=== PATIENT | female | born 1950 | race Caucasian/White ===

== ENCOUNTER 2017-07-24 09:00 | Day surgery (SDC) | payer MEDICARE ==
[~2017-07-24 09:00] MED LIST: Bisacodyl 5 MG Tab PO PRN; Bupivacaine 0.75%/D5W 2 ML Amp ONE; Dexamethasone 4 MG/ML SDV ONE; EPINEPHrine 1 MG/ML SDV ONE; Lactated Ringers 1,000 ML IV SCH; Lactated Ringers 1,000 ML ONE; Lidocaine 1% 2 ML ONE; Lidocaine 1%/Sod Bicarbonate in NS 8.4% 1 ML Syringe IDERM PRN; Magnesium Hydroxide 400 MG/5 ML Susp 30 ML Cup PO PRN; Midazolam 1 MG/ML 2 ML SDV ONE; Morphine 2 MG/ML Syringe IVPUSH PRN; Morphine 8 MG, EPINEPHrine 0.3 MG, Cefuroxime 750 MG, Ketorolac 30 MG, Sodium Chloride ... ONE; Morphine PF 10 MG/10 ML SDV ONE; Naloxone 0.4 MG/ML SDV IVPUSH PRN; Ondansetron 4 MG/2 ML SDV IVPUSH PRN; Ondansetron 4 MG/2 ML SDV ONE; Propofol 200 MG/20 ML SDV ONE; Ropivacaine 0.5% 5 MG/ML 30 ML SDV ONE; Sennosides 8.6 MG Tab PO PRN; Sodium Chloride 0.9% 10 ML Syringe FLUSH PRN; ceFAZolin 1 GM Vial ONE; fentaNYL 100 MCG/2 ML SDV ONE
[2017-07-24] MEDS ORDERED: Iodine/Sodium Iodide 2% Tincture 30 ML Bottle ONE (09:09)
[2017-07-24] MEDS ORDERED: ceFAZolin 1 GM Vial ONE (09:09)
[2017-07-24] MEDS ORDERED: Bupivacaine 0.25% 30 ML SDV ONE (09:09)
[2017-07-24] MEDS ORDERED: Vancomycin 1 GM SDV ONE (09:09)
--- NOTE | 2017-07-24 09:21 | PCM.PREANE ---
Preanesthetic Assessment - Procedure Proposed Procedure: left total knee arthroplasty - Anesthesia/Transfusion/Family Hx Anesthesia History: Prior Anesthesia Without Reaction Family History of Anesthesia Reaction: No Transfusion History: No Prior Transfusion(s) - Review of Systems General: No Symptoms Pulmonary: No Symptoms Cardiovascular: No Symptoms Gastrointestinal: No Symptoms Neurological: Seizure (last one a couple weeks ago- med change- had a few in fe - her left side goes numb- no unusual movements.-) Other: Reports: Easy Bruising - Physical Assessment NPO Status Date: 07/23/17 NPO Status Time: 21:00 (sip this am with pills) Pulse: 77 O2 Sat by Pulse Oximetry: 94 Respiratory Rate: 16 Blood Pressure: 148/92 Temperature: 98.2 F Height: 5 ft 3 in Weight: 67 kg ASA Class: 3 Mental Status: Alert & Oriented x3 Airway Class: Mallampati = 1 Dentition: Reports: Dentures (top and bottom) Thyro-Mental Finger Breadths: 3 Mouth Opening Finger Breadths: 3 ROM/Head Extension: Full Lungs: Clear to Auscultation, Normal Respiratory Effort Cardiovascular: Regular Rate, Regular Rhythm - Lab Values: Laboratory Last Values MRSA (PCR) Negative 07/01/17 13:55 - Imaging/EKG Impressions: stress test 06/[address] Jean - Allergies Allergies/Adverse Reactions: Allergies Allergy/AdvReac Type Severity Reaction Status Date / Time No Known Allergies Allergy Verified 07/23/17 09:43 - Blood Blood Available: No - Acknowledgements Anesthesia Type Planned: Spinal Pt an Appropriate Candidate for the Planned Anesthesia: Yes Alternatives and Risks of Anesthesia Discussed w Pt/Guardian: Yes Pt/Guardian Understands and Agrees with Anesthesia Plan: Yes PreAnesthesia Questionnaire HEENT History: Reports: Glaucoma Cardiovascular History: Reports: High Cholesterol, Hypertension Other Cardiovascular History: Syncopal episodes Respiratory History: Reports: Asthma (denies) Gastrointestinal History: Reports: Other (See Below) Other Gastrointestinal History: Rectocele Genitourinary History: Reports: Other (See Below) Other Genitourinary History: Cystocele 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: Musculoskeletal History: Reports: Osteoarthritis Neurological History: Reports: Seizure Psychiatric History: Reports: Bipolar Endocrine/Metabolic History: Reports: Osteoporosis Hematologic History: Reports: None Immunologic History: Reports: None Oncologic (Cancer) History: Reports: None Dermatologic History: Reports: None - Past Surgical History Head Surgeries/Procedures: Reports: None HEENT Surgical History: Reports: None Cardiovascular Surgical History: Reports: None Respiratory Surgical History: Reports: None GI Surgical History: Reports: Cholecystectomy Female Surgical History: Reports: Hysterectomy Endocrine Surgical History: Reports: None Neurological Surgical History: Reports: None Musculoskeletal Surgical History: Reports: None Oncologic Surgical History: Reports: None - SUBSTANCE USE Smoking Status *Q: Former Smoker (quit 4 years ago) Tobacco Use Within Last Twelve Months: No Second Hand Smoke Exposure: No Days Per Week of Alcohol Use: 0 Recreational Drug Use History: No - HOME MEDS Home Medications: Home Meds Cholecalciferol (Vitamin D3) [Vitamin D3] 2,000 unit PO DAILY 07/23/17 [History] lamoTRIgine [Lamictal] 100 mg PO BID 07/23/17 [History] - CURRENT (IN HOUSE) MEDS Current Meds: Current Medications Bisacodyl (Dulcolax) 5 mg PO DAILY PRN PRN Reason: Constipation Docusate Sodium (Colace) 100 mg PO BID VANITA Famotidine (Pepcid) 20 mg PO Q12H [facility] Lactated Ringer's (Ringers, Lactated) 1,000 mls @ 125 mls/hr IV ASDIRECTED [facility] Stop: 07/24/17 23:00 Cefazolin Sodium/Dextrose 2 gm (/ Premix) 50 mls @ 100 mls/hr IV Q8H [facility] [place] Stop: 07/24/17 23:29 Ketorolac Tromethamine (Toradol) 15 mg IVPUSH Q6H PRN PRN Reason: Pain Lidocaine/Sodium Bicarbonate (Buffered Lidocaine 1% In Ns 8.4%) 0.25 ml IDERM ONETIME PRN PRN Reason: Prior to IV Start Stop: 07/24/17 18:00 Magnesium Hydroxide (Milk Of Magnesia) 30 ml PO BID PRN PRN Reason: Constipation Morphine Sulfate (Morphine) 2 mg IVPUSH Q2H PRN PRN Reason: Breakthrough Pain Naloxone HCl (Narcan) 0.1 mg IVPUSH Q5M PRN PRN Reason: Oversedation Ondansetron HCl (Zofran) 4 mg IVPUSH Q6H PRN PRN Reason: Nausea/Vomiting Oxycodone/Acetaminophen (Percocet 325-5 Mg) 1 - 2 tab PO Q4H PRN PRN Reason: Pain Rivaroxaban (Xarelto) 10 mg PO DAILY VANITA Senna (Senna) 8.6 mg PO BID PRN PRN Reason: Constipation Sodium Chloride (Saline Flush) 10 ml FLUSH ASDIRECTED PRN PRN Reason: Keep Vein Open Stop: 07/24/17 18:00 Discontinued Medications Bupivacaine HCl (Marcaine 0.25%) Confirm Administered Dose 30 ml .ROUTE .STK- MED ONE Stop: 07/24/17 09:10 Bupivacaine HCl/Dextrose (Marcaine 0.75% Spinal) Confirm Administered Dose 2 ml .ROUTE .STK-MED ONE Stop: 07/24/17 08:23 Cefazolin Sodium (Ancef) Confirm Administered Dose 2 gm .ROUTE .STK-MED ONE Stop: 07/24/17 08:23 Cefazolin Sodium (Ancef) Confirm Administered Dose 2 gm .ROUTE .STK-MED ONE Stop: 07/24/17 09:10 Morphine Sulfate 8 mg/Epinephrine HCl 0.3 mg/Cefuroxime Sodium 750 mg/Ketorolac Tromethamine 30 mg/Sodium Chloride 27.9 ml 0 mg .XX ONETIME ONE Stop: 07/24/17 07:31 Dexamethasone (Dexamethasone) Confirm Administered Dose 4 mg .ROUTE .STK-MED ONE Stop: 07/24/17 08:23 Epinephrine HCl (Adrenalin) Confirm Administered Dose 1 mg .ROUTE .STK-MED ONE Stop: 07/24/17 07:33 Fentanyl (Sublimaze) Confirm Administered Dose 100 mcg .ROUTE .STK-MED ONE Stop: 07/24/17 08:23 Lidocaine HCl (Xylocaine-Mpf 1%) Confirm Administered Dose 10 mls @ as directed .ROUTE .STK-MED ONE Stop: 07/24/17 08:23 Lactated Ringer's (Ringers, Lactated) Confirm Administered Dose 1,000 mls @ as directed .ROUTE .STK-MED ONE Stop: 07/24/17 08:23 Lidocaine HCl (Xylocaine-Mpf 1%) Confirm Administered Dose 2 mls @ as directed .ROUTE .STK-MED ONE Stop: 07/24/17 08:28 Lidocaine HCl (Xylocaine-Mpf 1%) Confirm Administered Dose 2 mls @ as directed .ROUTE .STK-MED ONE Stop: 07/24/17 08:28 Iodine (Iodine 2% Mild Tincture) Confirm Administered Dose 30 ml .ROUTE .STK- MED ONE Stop: 07/24/17 09:10 Midazolam HCl (Versed 1 Mg/Ml) Confirm Administered Dose 2 mg .ROUTE .STK-MED ONE Stop: 06/09/17 07:53 Midazolam HCl (Versed 1 Mg/Ml) Confirm Administered Dose 2 mg .ROUTE .STK-MED ONE Stop: 07/24/17 08:24 Morphine Sulfate (Duramorph Pf) Confirm Administered Dose 10 mg .ROUTE .STK-MED ONE Stop: 07/24/17 08:24 Ondansetron HCl (Zofran) Confirm Administered Dose 4 mg .ROUTE .STK-MED ONE Stop: 07/24/17 08:23 Propofol (Diprivan 20 Ml) Confirm Administered Dose 400 mg .ROUTE .STK-MED ONE Stop: 07/24/17 08:23 Ropivacaine (Naropin 0.5%) Confirm Administered Dose 30 ml .ROUTE .STK-MED ONE Stop: 07/24/17 07:33 Tranexamic Acid (Cyklokapron) Confirm Administered Dose 1,000 mg .ROUTE .STK- MED ONE Stop: 07/24/17 09:10 Vancomycin HCl (Vancomycin) Confirm Administered Dose 1 gm .ROUTE .STK-MED ONE Stop: 07/24/17 09:10
[2017-07-24] MEDS ORDERED: Albuterol 0.083% 2.5 MG/3 ML Neb Soln NEB ONE (10:30)
[2017-07-24] MEDS ORDERED: Ondansetron 4 MG/2 ML SDV IVPUSH PRN (11:49)
[2017-07-24] MEDS ORDERED: fentaNYL 100 MCG/2 ML SDV IVPUSH PRN (11:49)
[2017-07-24] MEDS ORDERED: Midazolam 1 MG/ML 2 ML SDV IVPUSH PRN (11:49)
[2017-07-24] MEDS ORDERED: ePHEDrine 50 MG/ML SDV IVPUSH PRN (11:49)
[2017-07-24] MEDS ORDERED: diphenhydrAMINE 50 MG/ML SDV IVPUSH PRN (11:49)
[2017-07-24] MEDS ORDERED: HYDROmorphone 0.5 MG/0.5 ML Syringe IVPUSH PRN (11:51)
[2017-07-24] MEDS ORDERED: Lactated Ringers 1,000 ML ONE (11:58)
[2017-07-24] MEDS ORDERED: Phenylephrine 1 MG in Sodium Chloride 0.9% 10 ML IV SCH (12:00)
--- NOTE | 2017-07-24 12:08 | PCM.CONS ---
H&P History of Present Illness - General Date of Service: 07/24/17 Admit Problem/Dx: Admission Diagnosis/Problem Admission Diagnosis/Problem Osteoarthritis of knee Source of Information: Patient, Old Records, Provider History Limitations: Reports: No Limitations - History of Present Illness Initial Comments - Free Text/Narative: Martha is a 67 yo female patient of Dr. Shelton who is post-operative day 0 of left TKA. Hospital medicine was consulted for post-operative medical care. At this time she is stable. Pain is controlled. She denies any chest pain, shortness of breath, palpitations, nausea, or vomiting. She carries a history of : rectocele, cystocele, OA, syncope, bipolar, HLD, asthma, glaucoma, HTN, osteoporosis, seizure disorder (1x/month). She is a former smoker- quit 4 years ago. She is a full code. Her primary care provider is Micaela Myles. Left Knee Pain Score (Numeric/FACES): 5 - Related Data Allergies/Adverse Reactions: Allergies Allergy/AdvReac Type Severity Reaction Status Date / Time No Known Allergies Allergy Verified 07/23/17 09:43 Home Medications: Home Meds Cholecalciferol (Vitamin D3) [Vitamin D3] 2,000 unit PO DAILY 07/23/17 [History] lamoTRIgine [Lamictal] 100 mg PO BID 07/23/17 [History] Past Medical History HEENT History: Reports: Glaucoma Cardiovascular History: Reports: High Cholesterol, Hypertension Other Cardiovascular History: Syncopal episodes Respiratory History: Reports: Asthma (denies) Gastrointestinal History: Reports: Other (See Below) Other Gastrointestinal History: Rectocele Genitourinary History: Reports: Other (See Below) Other Genitourinary History: Cystocele [employer]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: Musculoskeletal History: Reports: Osteoarthritis Neurological History: Reports: Seizure Psychiatric History: Reports: Bipolar Endocrine/Metabolic History: Reports: Osteoporosis Hematologic History: Reports: None Immunologic History: Reports: None Oncologic (Cancer) History: Reports: None Dermatologic History: Reports: None - Past Surgical History Head Surgeries/Procedures: Reports: None HEENT Surgical History: Reports: None Cardiovascular Surgical History: Reports: None Respiratory Surgical History: Reports: None GI Surgical History: Reports: Cholecystectomy Female Surgical History: Reports: Hysterectomy Endocrine Surgical History: Reports: None Neurological Surgical History: Reports: None Musculoskeletal Surgical History: Reports: None Oncologic Surgical History: Reports: None Social & Family History - Tobacco Use Smoking Status *Q: Former Smoker (quit 4 years ago) Used Tobacco, but Quit: Yes Month/Year Tobacco Last Used: 2011 Second Hand Smoke Exposure: No - Caffeine Use Caffeine Use: Reports: Coffee - Alcohol Use Days Per Week of Alcohol Use: 0 - Recreational Drug Use Recreational Drug Use: No Drug Use in Last 12 Months: No H&P Review of Systems - Review of Systems: Review Of Systems: See Below General: Reports: Chills. Denies: Fever HEENT: Reports: No Symptoms Pulmonary: Reports: No Symptoms. Denies: Shortness of Breath, Pleuritic Chest Pain, Cough Cardiovascular: Reports: No Symptoms. Denies: Chest Pain, Palpitations, Dyspnea on Exertion, Edema Gastrointestinal: Reports: No Symptoms. Denies: Abdominal Pain, Diarrhea, Nausea, Vomiting Genitourinary: Reports: No Symptoms. Denies: Dysuria, Frequency, Burning, Pain , Urgency Musculoskeletal: Reports: Leg Pain (s/p LTKA) Skin: Reports: No Symptoms Psychiatric: Reports: No Symptoms Neurological: Reports: Numbness (s/p L TKA, medication still wearing off). Denies: Confusion, Dizziness, Seizure, Tingling Hematologic/Lymphatic: Reports: No Symptoms Immunologic: Reports: No Symptoms Exam - Exam Exam: See Below - Vital Signs Vital Signs: Last Vital Signs Temp 98.2 F 07/24/17 09:34 Pulse 77 07/24/17 09:34 Resp 16 07/24/17 09:34 BP 148/92 H 07/24/17 09:34 Pulse Ox 95 07/24/17 10:38 Weight: 147 lb - Exam Quality Assessment: Supplemental Oxygen (2L nasal cannula), Urinary Catheter, DVT Prophylaxis General: Alert, Oriented, Cooperative HEENT: Conjunctiva Clear, EACs Clear, EOMI, Hearing Intact, Mucosa Moist & Meyer , Nares Patent, Normal Nasal Septum, Posterior Pharynx Clear, Pupils Equal, Pupils Reactive, TMs Clear, PERRLA Neck: Supple, Trachea Midline, 2 Lungs: Clear to Auscultation, Normal Respiratory Effort Cardiovascular: Regular Rate, Regular Rhythm GI/Abdominal Exam: Normal Bowel Sounds, Soft, Non-Tender, No Organomegaly, No Distention, No Abnormal Bruit, No Mass, Pelvis Stable (Female) Exam: Deferred Rectal (Female) Exam: Deferred Back Exam: Normal Inspection, Full Range of Motion, NT Extremities: Normal Inspection, Non-Tender, No Pedal Edema, Normal Capillary Refill, Limited Range of Motion (s/p LTKA). No: Leg Pain Peripheral Pulses: 1+: Posterior Tibial (L), Posterior Tibial (R), Dorsalis Pedis (L), Dorsalis Pedis (R) Skin: Warm, Dry, Intact, Other (bandage dry and intact, no drainage) Neurological: Cranial Nerves Intact (grossly) Neuro Extensive - Mental Status: Alert, Oriented x3, Normal Mood/Affect, Normal Cognition Psychiatric: Alert, Normal Affect, Normal Mood Consult PN Assessment/Plan POD#: 0 (1) Status post total left knee replacement SNOMED Code(s): 6697719323405 Code(s): Z96.652 - PRESENCE OF LEFT ARTIFICIAL KNEE JOINT Priority: High Current Visit: Yes (2) Osteoarthritis SNOMED Code(s): 467366985 Code(s): M19.90 - UNSPECIFIED OSTEOARTHRITIS, UNSPECIFIED SITE Priority: High Current Visit: Yes Qualifiers: Osteoarthritis location: knee Osteoarthritis type: unspecified Laterality : left Qualified Code(s): M17.12 - Unilateral primary osteoarthritis, left knee (3) HTN (hypertension) SNOMED Code(s): 39374919 Code(s): I10 - ESSENTIAL (PRIMARY) HYPERTENSION Priority: Medium Current Visit: Yes Qualifiers: Hypertension type: unspecified Qualified Code(s): I10 - Essential (primary ) hypertension (4) HLD (hyperlipidemia) SNOMED Code(s): 48331084 Code(s): E78.5 - HYPERLIPIDEMIA, UNSPECIFIED Priority: Medium Current Visit: Yes Qualifiers: Hyperlipidemia type: unspecified Qualified Code(s): E78.5 - Hyperlipidemia , unspecified (5) Bipolar disorder SNOMED Code(s): 10168890 Code(s): F31.9 - BIPOLAR DISORDER, UNSPECIFIED Priority: Low Current Visit: Yes Qualifiers: Active/Remission status: remission status unspecified Qualified Code(s): F31.9 - Bipolar disorder, unspecified (6) Asthma SNOMED Code(s): 265100507 Code(s): J45.909 - UNSPECIFIED ASTHMA, UNCOMPLICATED Priority: Low Current Visit: No Qualifiers: Asthma severity: unspecified severity Asthma persistence: unspecified Asthma complication type: unspecified Qualified Code(s): J45.909 - Unspecified asthma, uncomplicated (7) Osteoporosis SNOMED Code(s): 02532638 Code(s): M81.0 - AGE-RELATED OSTEOPOROSIS W/O CURRENT PATHOLOGICAL FRACTURE Priority: High Current Visit: Yes Qualifiers: Osteoporosis type: unspecified Presence of current pathological fracture: unspecified Qualified Code(s): M81.0 - Age-related osteoporosis without current pathological fracture (8) Seizure disorder SNOMED Code(s): 652128330 Code(s): G40.909 - EPILEPSY, UNSP, NOT INTRACTABLE, WITHOUT STATUS EPILEPTICUS Priority: High Current Visit: No Problem List Initiated/Reviewed/Updated: Yes Plan: I/P: Acute: S/P left total knee arthroplasty - post-operative day 0 -DVT prophylaxis and pain management per primary care team -PT/OT -IS/RT -Monitor oxygen saturation -Titrate oxygen as needed -Vital signs stable -Monitor labs -Pre-operative Hgb was 14, eGFR was 81 Osteoarthritis of knee -Pain management per primary care team Chronic: Rectocele Cystocele Syncope Bipolar HLD Asthma Glaucoma HTN Osteoporosis Seizure Disorder (1x/mo) Plan: CM for discharge planning GI prophylaxis: Pepcid DVT/PE prophylaxis: CARMELITA casey, SCD, Xaralto Home medications as indicated Other orders as listed above Routine AM labs She is a full code. Her PCP is Micaela Myles. Thank you for allowing us to participate in the care of this patient!!
--- NOTE | 2017-07-24 13:24 | PCM.POSTAN ---
POST ANESTHESIA ASSESSMENT - MENTAL STATUS Mental Status: Alert - VITAL SIGNS Pulse Rate: 82 SaO2: 92 Resp Rate: 19 Blood Pressure: 154/79 Temperature: 36.5 C - RESPIRATORY Respiratory Status: Respiratory Rate WNL, Airway Patent, O2 Saturation Stable, Supplemental Oxygen - CARDIOVASCULAR CV Status: Pulse Rate WNL, Blood Pressure Stable - GASTROINTESTINAL GI Status: No Symptoms - POST OP HYDRATION Hydration Status: Adequate & Stable
--- NOTE | 2017-07-24 13:53 | PCM.SN ---
- Free Text/Narrative Note: Left selective femoral nerve block at the adductor canal for post-procedure pain control under US guidance requested by Dr. Shelton. Time Out: 1329 Start: 1329 End: 1342 Chart reviewed. Consent signed. Questions answered. Appropriate monitors applied. Time out performed. Left mid-shaft femur identified with ultrasound, scanning medially of femur, the femoral artery in the adductor canal visualized , and the femoral nerve located laterally to the artery. The skin was prepped lateral to the ultrasound probe with chlorahexadine times two. The 21ga 4 insulated block needle was inserted under direct ultrasound guidance into the adductor canal. 20mL of 0.5% ropivacaine with 1:200,000 epinephrine was injected circumferentially around the nerve with intermittent negative aspiration noted. Patient tolerated the procedure well. Sterile technique noted along with sterile gloves, mask, and sterile probe cover. See picture on progress note and vital signs on nurses notes. Block completed in PACU. Ginger Nelson CRNA
--- NOTE | 2017-07-24 15:10 | CR ---
Left knee: Two views of the left knee were obtained utilizing portable technique. Comparison: No prior knee exam. Knee prosthesis is seen. Components are aligned. Underlying bony structures are intact. Soft tissue air is noted from the surgical procedure. Vascular calcification is seen. Well-corticated calcification is noted off the medial epicondyle of the distal femur which appears to be incidental. Impression: 1. Satisfactory postoperative radiographic appearance of recently placed left knee prosthesis. 2. Other incidental findings. Diagnostic code #2
[2017-07-24] MEDS ORDERED: LORazepam 2 MG/ML SDV IVPUSH PRN (15:49)
[2017-07-24] MEDS: ceFAZolin 2 GM in Premix Bag 1 BAG IV SCH (16:48)
[2017-07-24] MEDS: lamoTRIgine 100 MG Tab PO SCH (19:03)
[2017-07-24] MEDS ORDERED: diphenhydrAMINE 50 MG/ML SDV IVPUSH ONE (20:21)
[2017-07-24] MEDS ORDERED: Cholecalciferol (Vitamin D3) 1,000 Unit Tab PO SCH (21:00)
[2017-07-24] MEDS: Famotidine 20 MG Tab PO SCH (21:00)
[2017-07-24] MEDS: Docusate Sodium 100 MG Cap PO SCH (21:00)
[2017-07-25] MEDS: ceFAZolin 2 GM in Premix Bag 1 BAG IV SCH ×2 (02:31→08:37)
[2017-07-25] MEDS: lamoTRIgine 100 MG Tab PO SCH ×2 (02:32→08:37)
--- NOTE | 2017-07-25 06:33 | PCM.SN ---
- Free Text/Narrative Note: Patient seen and examined at bedside. She slept good last night, pain is controlled and reports no acute issues. Her vitals are stable. From the hospitalist standpoint, patient is stable and relatively fine. We are now signing off on her case. Please feel free to call us for any questions or concerns.
--- NOTE | 2017-07-25 08:29 | PCM48HPAN ---
Post Anesthesia Note - EVALUATION WITHIN 48HRS OF ANESTHETIC Vital Signs in Normal Range: Yes Patient Participated in Evaluation: Yes Respiratory Function Stable: Yes Airway Patent: Yes Cardiovascular Function Stable: Yes Hydration Status Stable: Yes Pain Control Satisfactory: Yes Nausea and Vomiting Control Satisfactory: Yes Mental Status Recovered: Yes
[2017-07-25] MEDS: Famotidine 20 MG Tab PO SCH (08:37)
[2017-07-25] MEDS: Acetaminophen/oxyCODONE 325-5 MG Tab PO PRN ×2 (08:38→12:53)
[2017-07-25] MEDS: Docusate Sodium 100 MG Cap PO SCH (08:38)
--- NOTE | 2017-07-25 08:51 | PCM.SURGPN ---
- General Info Date of Service: 07/25/17 POD#: 1 Functional Status: Reports: Pain Controlled, Tolerating Diet, Ambulating, Urinating, Incentive Spirometry, Other (The pt states today that she is doing very well.) - Patient Data Vitals - Most Recent: Last Vital Signs Temp 98.1 F 07/25/17 00:43 Pulse 77 07/25/17 06:00 Resp 20 07/25/17 06:00 BP 121/89 07/25/17 00:43 Pulse Ox 94 L 07/25/17 06:51 Weight - Most Recent: 147 lb I&O - Last 24 Hours: Intake & Output 07/24/17 07/25/17 07/25/17 22:59 06:59 14:59 Intake Total 840 200 Output Total 350 400 Balance 490 -200 Lab Results Last 24 Hrs: Laboratory Results - last 24 hr 07/25/17 07/25/17 Range/Units 05:48 05:48 WBC 9.78 (3.98-10.04) K/mm3 RBC 3.76 L (3.98-5.22) M/mm3 Hgb 11.5 (11.2-15.7) gm/L Hct 36.4 (34.1-44.9) % MCV 96.8 H (79.4-94.8) fl MCH 30.6 (25.6-32.2) pg MCHC 31.6 L (32.2-35.5) g/dl RDW Std Deviation 46.2 (36.4-46.3) fL Plt Count 349 (182-369) K/mm3 MPV 10.5 (9.4-12.3) fl Sodium 143 (136-145) mEq/L Potassium 4.9 (3.5-5.1) mEq/L Chloride 108 H (98-107) mEq/L Carbon Dioxide 28 (21-32) mEq/L Anion Gap 11.9 (5-15) BUN 16 (7-18) mg/dL Creatinine 0.9 (0.55-1.02) mg/dL Est Cr Clr Drug Dosing 56.78 mL/min Estimated GFR (MDRD) > 60 (>60) mL/min BUN/Creatinine Ratio 17.8 (14-18) Glucose 91 (80-115) mg/dL Calcium 8.7 (8.5-10.1) mg/dL Total Bilirubin 0.4 (0.2-1.0) mg/dL AST 21 (15-37) U/L ALT 21 (14-59) U/L Alkaline Phosphatase 79 (46-116) U/L Total Protein 6.5 (6.4-8.2) g/dl Albumin 2.8 L (3.4-5.0) g/dl Globulin 3.7 gm/dL Albumin/Globulin Ratio 0.8 L (1-2) Med Orders - Current: Current Medications Bisacodyl (Dulcolax) 5 mg PO DAILY PRN PRN Reason: Constipation Cholecalciferol (Vitamin D3) 2,000 units PO BEDTIME [facility] Last Admin: 07/24/17 21:00 Dose: 2,000 units Docusate Sodium (Colace) 100 mg PO BID [facility] Last Admin: 07/25/17 08:38 Dose: 100 mg Famotidine (Pepcid) 20 mg PO Q12H [facility] Last Admin: 07/25/17 08:37 Dose: 20 mg Cefazolin Sodium/Dextrose 2 gm (/ Premix) 50 mls @ 100 mls/hr IV Q8H [facility] Stop: 07/25/17 09:29 Last Admin: 07/25/17 08:37 Dose: 100 mls/hr Ketorolac Tromethamine (Toradol) 15 mg IVPUSH Q6H PRN PRN Reason: Pain Lamotrigine (Lamotrigine) 100 mg PO BID [facility] Last Admin: 07/25/17 08:37 Dose: 100 mg Lorazepam (Ativan) 2 mg IVPUSH Q4H PRN PRN Reason: Seizures Magnesium Hydroxide (Milk Of Magnesia) 30 ml PO BID PRN PRN Reason: Constipation Morphine Sulfate (Morphine) 2 mg IVPUSH Q2H PRN PRN Reason: Breakthrough Pain Naloxone HCl (Narcan) 0.1 mg IVPUSH Q5M PRN PRN Reason: Oversedation Ondansetron HCl (Zofran) 4 mg IVPUSH Q6H PRN PRN Reason: Nausea/Vomiting Oxycodone/Acetaminophen (Percocet 325-5 Mg) 1 - 2 tab PO Q4H PRN PRN Reason: Pain Last Admin: 07/25/17 08:38 Dose: 2 tab Rivaroxaban (Xarelto) 10 mg PO DAILY [facility] Last Admin: 07/25/17 08:38 Dose: 10 mg Senna (Senna) 8.6 mg PO BID PRN PRN Reason: Constipation Discontinued Medications Albuterol (Proventil Neb Soln) 2.5 mg NEB ONETIME ONE Stop: 07/24/17 10:31 Last Admin: 07/24/17 10:38 Dose: 2.5 mg Bupivacaine HCl (Marcaine 0.25%) Confirm Administered Dose 30 ml .ROUTE .STK- MED ONE Stop: 07/24/17 09:10 Last Admin: 07/24/17 12:42 Dose: 30 ml Bupivacaine HCl/Dextrose (Marcaine 0.75% Spinal) Confirm Administered Dose 2 ml .ROUTE .STK-MED ONE Stop: 07/24/17 08:23 Cefazolin Sodium (Ancef) Confirm Administered Dose 2 gm .ROUTE .STK-MED ONE Stop: 07/24/17 08:23 Last Admin: 07/24/17 12:37 Dose: 2 gm Cefazolin Sodium (Ancef) Confirm Administered Dose 2 gm .ROUTE .STK-MED ONE Stop: 07/24/17 09:10 Morphine Sulfate 8 mg/Epinephrine HCl 0.3 mg/Cefuroxime Sodium 750 mg/Ketorolac Tromethamine 30 mg/Sodium Chloride 27.9 ml 0 mg .XX ONETIME ONE Stop: 07/24/17 07:31 Last Admin: 07/24/17 12:42 Dose: 788.3 mg Dexamethasone (Dexamethasone) Confirm Administered Dose 4 mg .ROUTE .STK-MED ONE Stop: 07/24/17 08:23 Diphenhydramine HCl (Benadryl) 25 mg IVPUSH Q6H PRN PRN Reason: pruritis Stop: 07/24/17 16:00 Diphenhydramine HCl (Benadryl) 25 mg IVPUSH ONETIME ONE Stop: 07/24/17 20:22 Last Admin: 07/24/17 20:30 Dose: 25 mg Ephedrine Sulfate (Ephedrine Sulfate) 5 mg IVPUSH ASDIRECTED PRN PRN Reason: Hypotension Stop: 07/24/17 16:00 Epinephrine HCl (Adrenalin) Confirm Administered Dose 1 mg .ROUTE .STK-MED ONE Stop: 07/24/17 07:33 Fentanyl (Sublimaze) Confirm Administered Dose 100 mcg .ROUTE .STK-MED ONE Stop: 07/24/17 08:23 Fentanyl (Sublimaze) 50 mcg IVPUSH Q5M PRN PRN Reason: Pain Stop: 07/24/17 11:50 Hydromorphone HCl (Dilaudid) 0.5 mg IVPUSH ONETIME PRN PRN Reason: Pain Stop: 07/24/17 11:52 Lactated Ringer's (Ringers, Lactated) 1,000 mls @ 125 mls/hr IV ASDIRECTED [facility] Stop: 07/24/17 23:00 Last Admin: 07/24/17 09:40 Dose: 125 mls/hr Lidocaine HCl (Xylocaine-Mpf 1%) Confirm Administered Dose 10 mls @ as directed .ROUTE .STK-MED ONE Stop: 07/24/17 08:23 Lactated Ringer's (Ringers, Lactated) Confirm Administered Dose 1,000 mls @ as directed .ROUTE .STK-MED ONE Stop: 07/24/17 08:23 Lidocaine HCl (Xylocaine-Mpf 1%) Confirm Administered Dose 2 mls @ as directed .ROUTE .STK-MED ONE Stop: 07/24/17 08:28 Lidocaine HCl (Xylocaine-Mpf 1%) Confirm Administered Dose 2 mls @ as directed .ROUTE .STK-MED ONE Stop: 07/24/17 08:28 Phenylephrine HCl 1 mg/ Sodium (Chloride) 10.1 mls @ 1 mls/sec IV TITRATE [facility]; Protocol Lactated Ringer's (Ringers, Lactated) Confirm Administered Dose 1,000 mls @ as directed .ROUTE .STK-MED ONE Stop: 07/24/17 11:59 Iodine (Iodine 2% Mild Tincture) Confirm Administered Dose 30 ml .ROUTE .STK- MED ONE Stop: 07/24/17 09:10 Last Admin: 07/24/17 12:35 Dose: 18 ml Lidocaine/Sodium Bicarbonate (Buffered Lidocaine 1% In Ns 8.4%) 0.25 ml IDERM ONETIME PRN PRN Reason: Prior to IV Start Stop: 07/24/17 18:00 Last Admin: 07/24/17 09:39 Dose: 0.25 ml Midazolam HCl (Versed 1 Mg/Ml) Confirm Administered Dose 2 mg .ROUTE .STK-MED ONE Stop: 06/09/17 07:53 Midazolam HCl (Versed 1 Mg/Ml) Confirm Administered Dose 2 mg .ROUTE .STK-MED ONE Stop: 07/24/17 08:24 Midazolam HCl (Versed 1 Mg/Ml) 2 mg IVPUSH ONETIME PRN PRN Reason: Sedation Stop: 07/24/17 11:50 Morphine Sulfate (Duramorph Pf) Confirm Administered Dose 10 mg .ROUTE .STK-MED ONE Stop: 07/24/17 08:24 Ondansetron HCl (Zofran) Confirm Administered Dose 4 mg .ROUTE .STK-MED ONE Stop: 07/24/17 08:23 Ondansetron HCl (Zofran) 4 mg IVPUSH ONETIME PRN PRN Reason: Nausea/Vomiting Stop: 07/24/17 16:00 Propofol (Diprivan 20 Ml) Confirm Administered Dose 400 mg .ROUTE .STK-MED ONE Stop: 07/24/17 08:23 Ropivacaine (Naropin 0.5%) Confirm Administered Dose 30 ml .ROUTE .STK-MED ONE Stop: 07/24/17 07:33 Sodium Chloride (Saline Flush) 10 ml FLUSH ASDIRECTED PRN PRN Reason: Keep Vein Open Stop: 07/24/17 18:00 Tranexamic Acid (Cyklokapron) Confirm Administered Dose 1,000 mg .ROUTE .STK- MED ONE Stop: 07/24/17 09:10 Last Admin: 07/24/17 12:48 Dose: 1,000 mg Vancomycin HCl (Vancomycin) Confirm Administered Dose 1 gm .ROUTE .STK-MED ONE Stop: 07/24/17 09:10 Last Admin: 07/24/17 12:44 Dose: 1 gm - Exam Wound/Incisions: Dressing Dry and Intact General: Alert, Cooperative, No Acute Distress Lungs: Normal Respiratory Effort Extremities: Other (NVS intact for LLE. Homans negative.) - Problem List Review Problem List Initiated/Reviewed/Updated: Yes - My Orders Last 24 Hours: Active Orders 24 hr Category Date Time Status Communication Order [RC] ASDIRECTED Care 07/24/17 11:48 Active Cooling Warming Measures [RC] ASDIRECTED Care 07/24/17 11:48 Active Notify Provider [RC] ASDIRECTED Care 07/24/17 11:48 Active Pulse Oximetry [RC] ASDIRECTED Care 07/24/17 11:48 Active RT Aerosol Therapy [RC] ASDIRECTED Care 07/24/17 09:39 Active Ready for Discharge [RC] PER UNIT ROUTINE Care 07/25/17 08:34 Active Vital Signs [RC] Q4HR Care 07/24/17 11:48 Active Regular Diet [DIET] Diet 07/24/17 Lunch Active Cholecalciferol (Vitamin D3) [Vitamin D3] Med 07/24/17 21:00 Active 2,000 units PO BEDTIME Docusate Sodium [Colace] Med 07/24/17 21:00 Active 100 mg PO BID Famotidine [Pepcid] Med 07/24/17 21:00 Active 20 mg PO Q12H LORazepam [Ativan] Med 07/24/17 15:49 Active 2 mg IVPUSH Q4H PRN Rivaroxaban [Xarelto] Med 07/25/17 09:00 Active 10 mg PO DAILY ceFAZolin [Ancef] 2 gm Med 07/24/17 17:00 Active Premix Bag 1 bag IV Q8H lamoTRIgine Med 07/24/17 21:00 Active 100 mg PO BID Pulse Oximetry Continuous Monitoring [OM.PC] Routine Oth 07/24/17 11:49 Active Medication Orders Bisacodyl (Dulcolax) 5 mg PO DAILY PRN PRN Reason: Constipation Cholecalciferol (Vitamin D3) 2,000 units PO BEDTIME [facility] Last Admin: 07/24/17 21:00 Dose: 2,000 units Docusate Sodium (Colace) 100 mg PO BID [facility] Last Admin: 07/25/17 08:38 Dose: 100 mg Admin: 07/24/17 21:00 Dose: 100 mg Famotidine (Pepcid) 20 mg PO Q12H [facility] Last Admin: 07/25/17 08:37 Dose: 20 mg Admin: 07/24/17 21:00 Dose: 20 mg Cefazolin Sodium/Dextrose 2 gm (/ Premix) 50 mls @ 100 mls/hr IV Q8H [facility] Stop: 07/25/17 09:29 Last Admin: 07/25/17 08:37 Dose: 100 mls/hr Infusion: 07/25/17 03:01 Dose: 100 mls/hr Admin: 07/25/17 02:31 Dose: 100 mls/hr Infusion: 07/24/17 17:18 Dose: 100 mls/hr Admin: 07/24/17 16:48 Dose: 100 mls/hr Ketorolac Tromethamine (Toradol) 15 mg IVPUSH Q6H PRN PRN Reason: Pain Lamotrigine (Lamotrigine) 100 mg PO BID [facility] Last Admin: 07/25/17 08:37 Dose: 100 mg Admin: 07/25/17 02:32 Dose: Not Given Admin: 07/24/17 19:03 Dose: 100 mg Lorazepam (Ativan) 2 mg IVPUSH Q4H PRN PRN Reason: Seizures Magnesium Hydroxide (Milk Of Magnesia) 30 ml PO BID PRN PRN Reason: Constipation Morphine Sulfate (Morphine) 2 mg IVPUSH Q2H PRN PRN Reason: Breakthrough Pain Naloxone HCl (Narcan) 0.1 mg IVPUSH Q5M PRN PRN Reason: Oversedation Ondansetron HCl (Zofran) 4 mg IVPUSH Q6H PRN PRN Reason: Nausea/Vomiting Oxycodone/Acetaminophen (Percocet 325-5 Mg) 1 - 2 tab PO Q4H PRN PRN Reason: Pain Last Admin: 07/25/17 08:38 Dose: 2 tab Rivaroxaban (Xarelto) 10 mg PO DAILY [facility] Last Admin: 07/25/17 08:38 Dose: 10 mg Senna (Senna) 8.6 mg PO BID PRN PRN Reason: Constipation - Assessment Assessment (Free Text/Narrative):: POD#1 - left TKA - Plan Plan (Free Text/Narrative):: 1. Hgb 11.5. 2. Xarelto, TEDs, frequent mobility. 3. Discharge to home today if cleared by Hospitalist service. 4. Outpatient therapy. The pt's case was discussed with Dr. Shelton.
[2017-07-25] MEDS ORDERED: Rivaroxaban 10 MG Tab PO SCH (09:00)
[2017-07-25] MEDS: Ketorolac 15 MG/ML SDV IVPUSH PRN ×2 (13:14→14:31)
--- NOTE | 2017-07-30 15:37 | PCM.OPNOTE ---
- General Post-Op/Procedure Note Date of Surgery/Procedure: 07/24/17 Operative Procedure(s): left total knee arthroplasty Pre Op Diagnosis: left knee osteoarthrosis Post-Op Diagnosis: Same Anesthesia Technique: Local, MAC, Spinal Primary Surgeon: Russell Shelton Anesthesia Provider: Ginger Nelson [place] Shearer: Maria Guadalupe Lakhani [employer] Shearer: Char Cuellar EBAnderson in mLs: 10 Complications: None Condition: Good Free Text/Narrative:: size 5/5 11mm 32x10
--- NOTE | 2017-07-30 15:56 | OR ---
DATE OF OPERATION: 07/24/2017 SURGEON: Russell Shelton MD OPERATION PERFORMED: Left total knee arthroplasty. PREOPERATIVE DIAGNOSIS: Left knee osteoarthrosis. POSTOPERATIVE DIAGNOSIS: Left knee osteoarthrosis. ANESTHESIA: Local MAC with spinal. ANESTHESIA PROVIDER: Ginger Nelson CRNA ASSISTANTS: 1. Maria Guadalupe Lakhani PA-C. 2. Char Cuellar LPN. ESTIMATED BLOOD LOSS: 10 mL. COMPLICATIONS: None. CONDITION: Stable. IMPLANTS: 1. Isaura size 5 PS femur. 2. Isaura size 5 universal tibial baseplate. 3. [place] size 5, 11 mm PS X3 polyethylene. 4. [place] size 32 x 10 mm asymmetric patella. DESCRIPTION OF PROCEDURE: The patient was identified in the preop holding area. Proper site was marked and identified by the surgeon. The patient was taken back to the operating theater. After adequate anesthesia, the patient's left lower extremity had a nonsterile tourniquet applied and it was then sterilely prepped and draped in the usual sterile fashion. OR timeout was performed. The patient received 2 g IV Ancef. At this time, the left lower extremity was exsanguinated. Tourniquet was insufflated to 300 mmHg. Standard medial parapatellar incision was made. Medial parapatellar arthrotomy was created. Deep fibers of the MCL were raised and anterior fat pad was resected. At this time, attention was turned to the patella. Patella measured a 24, it was resected to a 14 for a 32 x 10 mm patella. Drill holes were then drilled and found to be in adequate position. The drill was then drilled in the distal femur and the intramedullary distal femoral cutting guide was then placed. 8 mm was resected off the distal femur and was found to be an adequate resection. Sizing guide was placed. It was found to be a size 5 femur that was shown on the implant record at the beginning of this dictation. The drill holes were drilled for the epicondylar axis using [place] line and epicondyles as reference. At this time, the 4-in-1 cutting block was placed. An anterior posterior and anterior and posterior chamfer cuts were then completed. The correct size box cut was then placed and the box cut was completed and found to be an adequate resection. Attention was turned to the tibia. The posterior medial lateral retractors were placed. The extramedullary tibial guide was placed. It was placed in the old footprint of the ACL. It was aligned with the center of the ankle and 0 degrees of slope, 9 mm was then resected off the unaffected lateral side. There was found to be an acceptable reduction. At this time, posterior osteophytes were removed along with medial and lateral meniscus. A trial implant was placed with a correct sized tibia that was mentioned at the beginning of the dictation. A Isaura size 5, 11 mm PS X3 polyethylene was then placed. The patient's knee was brought through range of motion. The patella was tracking centrally and was stable to varus and valgus stress. Alignment was found to be roughly at 0 degrees. At this time, cement was mixed on the back table. The tibia was stamped and drilled in proper rotation. All cut surfaces were irrigated with pulse lavage irrigation with Ancef and then completely dried. Once this was completed, then the cement was ready. The universal tibial base plate was cemented in place. Next, the Isaura size 5 PS femur cemented into place, and the Isaura size 5, 11 mm PS X3 polyethylene was placed. The patient's knee was brought into full extension. Excess cement was removed. The patella was then cemented in place at this time. Tourniquet was deflated. One liter dilute Betadine solution was irrigated through the knee along with 3 L of pulse lavage irrigation with Ancef. Periarticular injection was then completed. The patient's knee was brought through a range of motion. Once the cement had time to set up and it was found to be stable to varus valgus stress, the patella was tracking centrally with full range of motion. At this time, a #2 barbed suture was used for closure of the medial parapatellar arthrotomy. Topical tranexamic acid was placed. 2-0 Vicryl was used subcutaneously, a running 3-0 Monocryl was used subcuticularly. The patient tolerated the procedure well and was sent to the PACU in stable condition. JACQUELINE /[id number]
== END 2017-07-25 15:15 | disposition home or self-care (01) ==
LOC: JD.SDS 09:00 → JD.MS 09:05 → JD.SDS 07-25 15:15
PROVIDERS: ATTEND Orthopaedic Surgery
DX: M17.0 Bilateral primary osteoarthritis of knee (principal); M81.0 Age-related osteoporosis without current pathological fracture; I10 Essential (primary) hypertension; J45.909 Unspecified asthma, uncomplicated; E78.5 Hyperlipidemia, unspecified; E78.00 Pure hypercholesterolemia, unspecified; N81.10 Cystocele, unspecified; N81.6 Rectocele; H40.1230 Low-tension glaucoma, bilateral, stage unspecified; F31.9 Bipolar disorder, unspecified; Z79.899 Other long term (current) drug therapy; Z87.891 Personal history of nicotine dependence
CPT/HCPCS: 27447; 36415; 73560; 80053; 85027; 87641; 94640; 94762; 97110; 97116; 97162; 97165; 97530; 97535; A9270; C1713; C1776; J0171; J0690; J0697; J1100; J1200; J1885; J2001; J2250; J2270; J2405; J2795; J3010; J3370; J3490; J7120; 01402; 64447; J2704

== ENCOUNTER 2017-10-27 05:59 | Day surgery (SDC) | payer MEDICARE ==
[~2017-10-27 05:59] MED LIST changes: -Bisacodyl 5 MG Tab PO PRN; -Bupivacaine 0.75%/D5W 2 ML Amp ONE; -Dexamethasone 4 MG/ML SDV ONE; -EPINEPHrine 1 MG/ML SDV ONE; -Lactated Ringers 1,000 ML ONE; -Lidocaine 1% 2 ML ONE; -Magnesium Hydroxide 400 MG/5 ML Susp 30 ML Cup PO PRN; -Midazolam 1 MG/ML 2 ML SDV ONE; -Morphine 2 MG/ML Syringe IVPUSH PRN; -Morphine 8 MG, EPINEPHrine 0.3 MG, Cefuroxime 750 MG, Ketorolac 30 MG, Sodium Chloride ... ONE; -Morphine PF 10 MG/10 ML SDV ONE; -Naloxone 0.4 MG/ML SDV IVPUSH PRN; -Ondansetron 4 MG/2 ML SDV IVPUSH PRN; -Ondansetron 4 MG/2 ML SDV ONE; -Propofol 200 MG/20 ML SDV ONE; -Ropivacaine 0.5% 5 MG/ML 30 ML SDV ONE; -Sennosides 8.6 MG Tab PO PRN; -ceFAZolin 1 GM Vial ONE; -fentaNYL 100 MCG/2 ML SDV ONE
[2017-10-27] MEDS ORDERED: Acetaminophen 325 MG Tab PO SCH (06:00)
[2017-10-27] MEDS ORDERED: oxyCODONE ER 10 MG TAB.ER PO SCH (06:00)
[2017-10-27] MEDS ORDERED: Pregabalin 25 MG Cap PO SCH (06:00)
[2017-10-27] MEDS ORDERED: ceFAZolin 1 GM Vial ONE ×2 (06:09→07:16)
[2017-10-27] MEDS ORDERED: Iodine/Sodium Iodide 2% Tincture 30 ML Bottle ONE (06:09)
[2017-10-27] MEDS ORDERED: Bupivacaine 0.25% 30 ML SDV ONE (06:09)
[2017-10-27] MEDS ORDERED: Cyclobenzaprine 10 MG Tab PO PRN (06:13)
[2017-10-27] MEDS ORDERED: Morphine 2 MG/ML Syringe IVPUSH PRN (06:14)
[2017-10-27] MEDS ORDERED: Magnesium Hydroxide 400 MG/5 ML Susp 30 ML Cup PO PRN (06:14)
[2017-10-27] MEDS ORDERED: Sennosides 8.6 MG Tab PO PRN (06:14)
[2017-10-27] MEDS ORDERED: Bisacodyl 5 MG Tab PO PRN (06:14)
[2017-10-27] MEDS ORDERED: Naloxone 0.4 MG/ML SDV IVPUSH PRN (06:14)
[2017-10-27] MEDS ORDERED: Ondansetron 4 MG/2 ML SDV IVPUSH PRN ×2 (06:14→08:51)
[2017-10-27] MEDS ORDERED: fentaNYL 100 MCG/2 ML SDV ONE (06:26)
[2017-10-27] MEDS ORDERED: Propofol 200 MG/20 ML SDV ONE (06:26)
[2017-10-27] MEDS ORDERED: Midazolam 1 MG/ML 2 ML SDV ONE (06:27)
[2017-10-27] MEDS ORDERED: Bupivacaine 0.75% 30 ML SDV ONE (06:31)
[2017-10-27] MEDS ORDERED: Ondansetron 4 MG/2 ML SDV ONE (06:31)
[2017-10-27] MEDS ORDERED: Dexamethasone 4 MG/ML SDV ONE (06:31)
--- NOTE | 2017-10-27 06:48 | PCM.PREANE ---
Preanesthetic Assessment - Procedure Proposed Procedure: Right TKR - Anesthesia/Transfusion/Family Hx Anesthesia History: Prior Anesthesia Without Reaction Family History of Anesthesia Reaction: No Transfusion History: No Prior Transfusion(s) - Review of Systems General: No Symptoms Pulmonary: No Symptoms Cardiovascular: No Symptoms Gastrointestinal: No Symptoms Neurological: Seizure (last seizure about 3 weeks ago ) Other: Reports: Easy Bruising - Physical Assessment NPO Status Date: 10/26/17 NPO Status Time: 22:00 Pulse: 80 O2 Sat by Pulse Oximetry: 93 Respiratory Rate: 18 Blood Pressure: 154/97 Temperature: 36.9 C Height: 1.68 m Weight: 69.4 kg ASA Class: 2 Mental Status: Alert & Oriented x3 Airway Class: Mallampati = 2 Dentition: Reports: Dentures (upper and lower ) Thyro-Mental Finger Breadths: 3 Mouth Opening Finger Breadths: 3 ROM/Head Extension: Full Lungs: Clear to Auscultation, Normal Respiratory Effort Cardiovascular: Regular Rate, Regular Rhythm - Lab Values: Laboratory Last Values MRSA (PCR) Negative 10/15/17 14:56 - Allergies Allergies/Adverse Reactions: Allergies Allergy/AdvReac Type Severity Reaction Status Date / Time No Known Allergies Allergy Verified 10/24/17 12:57 - Blood Blood Available: No Product(s) Available: None - Anesthesia Plan Pre-Op Medication Ordered: None - Acknowledgements Anesthesia Type Planned: Spinal, Regional Block (Right adductor canal block in PACU) Pt an Appropriate Candidate for the Planned Anesthesia: Yes Alternatives and Risks of Anesthesia Discussed w Pt/Guardian: Yes Pt/Guardian Understands and Agrees with Anesthesia Plan: Yes PreAnesthesia Questionnaire HEENT History: Reports: Glaucoma, Impaired Vision, Other (See Below) Other HEENT History: has glasses, dentures Cardiovascular History: Reports: High Cholesterol, Hypertension Other Cardiovascular History: Syncopal episodes Respiratory History: Reports: Asthma Other Respiratory History: bronchitis, cough Gastrointestinal History: Reports: Other (See Below) Other Gastrointestinal History: Rectocele Genitourinary History: Reports: Other (See Below) Other Genitourinary History: Cystocele, rectocele BUSINESS DEVELOPER History: Reports: Musculoskeletal History: Reports: Osteoarthritis, Osteoporosis Neurological History: Reports: Seizure Psychiatric History: Reports: Bipolar Endocrine/Metabolic History: Reports: Osteoporosis Hematologic History: Reports: None Immunologic History: Reports: None Oncologic (Cancer) History: Reports: None Dermatologic History: Reports: None - Past Surgical History Head Surgeries/Procedures: Reports: None HEENT Surgical History: Reports: Oral Surgery, Tonsillectomy Cardiovascular Surgical History: Reports: None Respiratory Surgical History: Reports: None GI Surgical History: Reports: Cholecystectomy, Colonoscopy Female Surgical History: Reports: Hysterectomy, Oophorectomy Endocrine Surgical History: Reports: None Neurological Surgical History: Reports: None Musculoskeletal Surgical History: Reports: None, Knee Replacement Oncologic Surgical History: Reports: None Dermatological Surgical History: Reports: None - SUBSTANCE USE Smoking Status *Q: Former Smoker (quit 2013) Tobacco Use Within Last Twelve Months: No Recreational Drug Use History: No - HOME MEDS Home Medications: Home Meds lamoTRIgine [Lamictal] 100 mg PO BID 07/23/17 [History] Bimatoprost [LUMIGAN 0.01% Ophth Soln] 1 drop EYEBOTH BEDTIME 10/24/17 [History] Calcium Carbonate/Vitamin D3 [Calcium 600 + Vit D 200] 1 tab PO DAILY 10/24/17 [ History] Fish Oil/[place]-3 Fatty Acids [Fish Oil 1,000 MG] 1 gm PO DAILY 10/24/17 [History ] Fluticasone/Salmeterol [Advair 250-50] 1 puff INH BID 10/24/17 [History] Lutein/Minerals/Vit A,C & E [Ocuvite] 1 tab PO DAILY 10/24/17 [History] Multivitamin [Poly-Vitamin] 1 tab PO DAILY 10/24/17 [History] - CURRENT (IN HOUSE) MEDS Current Meds: Current Medications Acetaminophen (Tylenol) 975 mg PO ONETIME [facility] Stop: 10/27/17 14:00 Bisacodyl (Dulcolax) 5 mg PO DAILY PRN PRN Reason: Constipation Morphine Sulfate 8 mg/Epinephrine HCl 0.3 mg/Cefuroxime Sodium 750 mg/Ketorolac Tromethamine 30 mg/Sodium Chloride 27.9 ml 0 mg .XX ONETIME ONE Stop: 10/27/17 06:14 Cyclobenzaprine HCl (Flexeril) 10 mg PO TID PRN PRN Reason: Spasms Docusate Sodium (Colace) 100 mg PO BID [facility] Famotidine (Pepcid) 20 mg PO Q12H [facility] Lactated Ringer's (Ringers, Lactated) 1,000 mls @ 125 mls/hr IV ASDIRECTED [facility] Cefazolin Sodium/Dextrose 2 gm (/ Premix) 50 mls @ 100 mls/hr IV Q8H [facility] Stop: 10/27/17 22:44 Ketorolac Tromethamine (Toradol) 15 mg IVPUSH Q6H PRN PRN Reason: Pain Lidocaine/Sodium Bicarbonate (Buffered Lidocaine 1% In Ns 8.4%) 0.25 ml IDERM ONETIME PRN PRN Reason: Prior to IV Start Magnesium Hydroxide (Milk Of Magnesia) 30 ml PO BID PRN PRN Reason: Constipation Morphine Sulfate (Morphine) 2 mg IVPUSH Q2H PRN PRN Reason: Breakthrough Pain Naloxone HCl (Narcan) 0.1 mg IVPUSH Q5M PRN PRN Reason: Oversedation Ondansetron HCl (Zofran) 4 mg IVPUSH Q6H PRN PRN Reason: Nausea/Vomiting Oxycodone HCl (Oxycontin) 10 mg PO ONETIME [facility] Stop: 10/27/17 14:00 Oxycodone/Acetaminophen (Percocet 325-5 Mg) 1 - 2 tab PO Q4H PRN PRN Reason: Pain Pregabalin (Lyrica) 50 mg PO ONETIME [facility] Stop: 10/27/17 14:00 Rivaroxaban (Xarelto) 10 mg PO DAILY [facility] Senna (Senna) 8.6 mg PO BID PRN PRN Reason: Constipation Sodium Chloride (Saline Flush) 10 ml FLUSH ASDIRECTED PRN PRN Reason: Keep Vein Open Discontinued Medications Bupivacaine HCl (Marcaine 0.25%) Confirm Administered Dose 30 ml .ROUTE .STK- MED ONE Stop: 10/27/17 06:10 Bupivacaine HCl (Sensorcaine-Mpf 0.75%) Confirm Administered Dose 30 ml .ROUTE .STK-MED ONE Stop: 10/27/17 06:32 Cefazolin Sodium (Ancef) Confirm Administered Dose 2 gm .ROUTE .STK-MED ONE Stop: 10/27/17 06:10 Dexamethasone (Dexamethasone) Confirm Administered Dose 4 mg .ROUTE .STK-MED ONE Stop: 10/27/17 06:32 Fentanyl (Sublimaze) Confirm Administered Dose 100 mcg .ROUTE .STK-MED ONE Stop: 10/27/17 06:27 Lidocaine HCl (Xylocaine-Mpf 1%) Confirm Administered Dose 5 mls @ as directed .ROUTE .STK-MED ONE Stop: 10/27/17 06:32 Iodine (Iodine 2% Mild Tincture) Confirm Administered Dose 30 ml .ROUTE .STK- MED ONE Stop: 10/27/17 06:10 Midazolam HCl (Versed 1 Mg/Ml) Confirm Administered Dose 2 mg .ROUTE .STK-MED ONE Stop: 10/27/17 06:28 Ondansetron HCl (Zofran) Confirm Administered Dose 4 mg .ROUTE .STK-MED ONE Stop: 10/27/17 06:32 Propofol (Diprivan 20 Ml) Confirm Administered Dose 600 mg .ROUTE .STK-MED ONE Stop: 10/27/17 06:27 Tranexamic Acid (Cyklokapron) Confirm Administered Dose 1,000 mg .ROUTE .STK- MED ONE Stop: 10/27/17 06:10 Vancomycin HCl (Vancomycin) Confirm Administered Dose 1 gm .ROUTE .STK-MED ONE Stop: 10/27/17 06:10
--- NOTE | 2017-10-27 07:11 | PCM.CONS ---
H&P History of Present Illness - General Date of Service: 10/27/17 Admit Problem/Dx: Admission Diagnosis/Problem Admission Diagnosis/Problem Osteoarthritis of knee Source of Information: Patient, Old Records, Provider, RN, RN Notes Reviewed, Other (surgical notes ) - History of Present Illness Initial Comments - Free Text/Narative: Martha Jewell is a 67 yo female patient of Dr. Shelton who is post-operative day 0 of right TKA. Hospital medicine was consulted for post-operative medical care. At this time she is resting comfortably in bed. Pain is controlled. She denies any chest pain, shortness of breath, palpitations, nausea, or vomiting. She carries a history of: chronic cough, HLD, glaucoma, seizures, asthma, hypertension, osteoporosis, cystocele, rectocele, osteoarthritis and bipolar disorder. She is a former smoker. She is a full code. Her primary care provider is Dr. Myles. - Related Data Allergies/Adverse Reactions: Allergies Allergy/AdvReac Type Severity Reaction Status Date / Time No Known Allergies Allergy Verified 10/27/17 09:55 Home Medications: Home Meds lamoTRIgine [Lamictal] 100 mg PO BID 07/23/17 [History] Bimatoprost [LUMIGAN 0.01% Ophth Soln] 1 drop EYEBOTH BEDTIME 10/24/17 [History] Calcium Carbonate/Vitamin D3 [Calcium 600 + Vit D 200] 1 tab PO DAILY 10/24/17 [ History] Fish Oil/[place]-3 Fatty Acids [Fish Oil 1,000 MG] 1 gm PO DAILY 10/24/17 [History ] Fluticasone/Salmeterol [Advair 250-50] 1 puff INH BID 10/24/17 [History] Lutein/Minerals/Vit A,C & E [Ocuvite] 1 tab PO DAILY 10/24/17 [History] Multivitamin [Poly-Vitamin] 1 tab PO DAILY 10/24/17 [History] Past Medical History HEENT History: Reports: Glaucoma, Impaired Vision, Other (See Below) Other HEENT History: has glasses, dentures Cardiovascular History: Reports: High Cholesterol, Hypertension Other Cardiovascular History: Syncopal episodes Respiratory History: Reports: Asthma Other Respiratory History: bronchitis, cough Gastrointestinal History: Reports: Other (See Below) Other Gastrointestinal History: Rectocele Genitourinary History: Reports: Other (See Below) Other Genitourinary History: Cystocele, rectocele [employer] History: Reports: Musculoskeletal History: Reports: Osteoarthritis, Osteoporosis Neurological History: Reports: Seizure Psychiatric History: Reports: Bipolar Endocrine/Metabolic History: Reports: Osteoporosis Hematologic History: Reports: None Immunologic History: Reports: None Oncologic (Cancer) History: Reports: None Dermatologic History: Reports: None - Past Surgical History Head Surgeries/Procedures: Reports: None HEENT Surgical History: Reports: Oral Surgery, Tonsillectomy Cardiovascular Surgical History: Reports: None Respiratory Surgical History: Reports: None GI Surgical History: Reports: Cholecystectomy, Colonoscopy Female Surgical History: Reports: Hysterectomy, Oophorectomy Endocrine Surgical History: Reports: None Neurological Surgical History: Reports: None Musculoskeletal Surgical History: Reports: None, Knee Replacement Oncologic Surgical History: Reports: None Dermatological Surgical History: Reports: None Social & Family History - Tobacco Use Smoking Status *Q: Former Smoker (quit 2013) Used Tobacco, but Quit: Yes Month/Year Tobacco Last Used: 2011 - Caffeine Use Caffeine Use: Reports: Coffee - Recreational Drug Use Recreational Drug Use: No Drug Use in Last 12 Months: No H&P Review of Systems - Review of Systems: Review Of Systems: See Below General: Reports: No Symptoms HEENT: Reports: No Symptoms. Denies: Sore Throat Pulmonary: Reports: No Symptoms. Denies: Shortness of Breath, Wheezing, Cough, Sputum Cardiovascular: Reports: No Symptoms. Denies: Chest Pain, Palpitations, Lightheadedness Gastrointestinal: Reports: No Symptoms. Denies: Abdominal Pain, Constipation, Diarrhea, Nausea, Vomiting Genitourinary: Reports: No Symptoms Musculoskeletal: Reports: No Symptoms. Denies: Leg Pain Skin: Reports: No Symptoms Psychiatric: Reports: No Symptoms Neurological: Reports: No Symptoms, Numbness (legs ) Hematologic/Lymphatic: Reports: No Symptoms Immunologic: Reports: No Symptoms Exam - Exam Exam: See Below - Vital Signs Vital Signs: Last Vital Signs Temp 98.5 F 10/27/17 06:56 Pulse 80 10/27/17 06:56 Resp 18 10/27/17 06:56 BP 154/97 H 10/27/17 06:56 Pulse Ox 93 L 10/27/17 06:56 Weight: 153 lb - Exam Quality Assessment: Supplemental Oxygen (2L), Urinary Catheter, DVT Prophylaxis General: Alert, Oriented, Cooperative. No: Mild Distress HEENT: Conjunctiva Clear, EACs Clear, EOMI, Hearing Intact, Mucosa Moist & [place] , Nares Patent, Posterior Pharynx Clear, PERRLA Neck: Supple, Trachea Midline Lungs: Clear to Auscultation, Normal Respiratory Effort Cardiovascular: Regular Rate, Regular Rhythm GI/Abdominal Exam: Normal Bowel Sounds, Soft, Non-Tender, No Distention, No Abnormal Bruit (Female) Exam: Deferred Rectal (Female) Exam: Deferred Back Exam: Normal Inspection, Full Range of Motion Extremities: No Pedal Edema, Normal Capillary Refill, Leg Pain, Limited Range of Motion, Other (MANUEL Bandage in place on right leg. Bandage is dry and intact. Cooling pack in place ) Peripheral Pulses: 2+: Radial (L), Radial (R), Dorsalis Pedis (L), Dorsalis Pedis (R) Skin: Warm, Dry, Intact Neurological: Cranial Nerves Intact (grossly) Neuro Extensive - Mental Status: Alert, Oriented x3, Normal Mood/Affect, Normal Cognition, Memory Intact Psychiatric: Alert, Normal Affect, Normal Mood Consult PN Assessment/Plan POD#: 0 Procedures: Procedures AIRWAY INHALATION TREATMENT (07/24/17) COMPLETE CBC AUTOMATED (07/24/17) COMPREHEN METABOLIC PANEL (07/24/17) GAIT TRAINING THERAPY (07/24/17) MEASURE BLOOD OXYGEN LEVEL (07/24/17) MR-STAPH DNA AMP PROBE (07/24/17) OT EVAL LOW COMPLEX 30 MIN (07/24/17) PT EVAL MOD COMPLEX 30 MIN (07/24/17) ROUTINE VENIPUNCTURE (07/24/17) SELF CARE MNGMENT TRAINING (07/24/17) THERAPEUTIC ACTIVITIES (07/24/17) THERAPEUTIC EXERCISES (07/24/17) TOTAL KNEE ARTHROPLASTY (07/24/17) X-RAY EXAM OF KNEE 1 OR 2 (07/24/17) (1) S/P total knee arthroplasty SNOMED Code(s): 4785144713548, 539156144, 1123877584776 Code(s): Z96.659 - PRESENCE OF UNSPECIFIED ARTIFICIAL KNEE JOINT Priority: High Current Visit: Yes Qualifiers: Laterality: right Qualified Code(s): Z96.651 - Presence of right artificial knee joint (2) Osteoarthritis SNOMED Code(s): 037122522 Code(s): M19.90 - UNSPECIFIED OSTEOARTHRITIS, UNSPECIFIED SITE Priority: High Current Visit: No Qualifiers: Osteoarthritis location: knee Osteoarthritis type: unspecified Laterality : right Qualified Code(s): M17.11 - Unilateral primary osteoarthritis, right knee (3) Asthma SNOMED Code(s): 439319069 Code(s): J45.909 - UNSPECIFIED ASTHMA, UNCOMPLICATED Priority: Low Current Visit: No Qualifiers: Asthma severity: unspecified severity Asthma persistence: unspecified Asthma complication type: unspecified Qualified Code(s): J45.909 - Unspecified asthma, uncomplicated (4) Bipolar disorder SNOMED Code(s): 71699854 Code(s): F31.9 - BIPOLAR DISORDER, UNSPECIFIED Priority: Medium Current Visit: No Qualifiers: Active/Remission status: remission status unspecified Qualified Code(s): F31.9 - Bipolar disorder, unspecified (5) HLD (hyperlipidemia) SNOMED Code(s): 23598397 Code(s): E78.5 - HYPERLIPIDEMIA, UNSPECIFIED Priority: Low Current Visit : No Qualifiers: Hyperlipidemia type: unspecified Qualified Code(s): E78.5 - Hyperlipidemia , unspecified (6) HTN (hypertension) SNOMED Code(s): 61521627 Code(s): I10 - ESSENTIAL (PRIMARY) HYPERTENSION Priority: Medium Current Visit: No Qualifiers: Hypertension type: unspecified Qualified Code(s): I10 - Essential (primary ) hypertension (7) Osteoporosis SNOMED Code(s): 49823765 Code(s): M81.0 - AGE-RELATED OSTEOPOROSIS W/O CURRENT PATHOLOGICAL FRACTURE Priority: High Current Visit: No Qualifiers: Osteoporosis type: unspecified Presence of current pathological fracture: unspecified Qualified Code(s): M81.0 - Age-related osteoporosis without current pathological fracture (8) Seizure disorder SNOMED Code(s): 594950990 Code(s): G40.909 - EPILEPSY, UNSP, NOT INTRACTABLE, WITHOUT STATUS EPILEPTICUS Priority: High Current Visit: No Problem List Initiated/Reviewed/Updated: Yes Plan: I/P: Acute: S/P right total knee arthroplasty - post-operative day 0 -DVT prophylaxis and pain management per primary care team -PT/OT -IS/RT -Monitor oxygen saturation -Titrate oxygen as needed -Vital signs stable -Monitor labs -Pre-operative Hgb was 13.1 -Pre-operative GFR was 76 Osteoarthritis of right knee -Pain management per primary care team Chronic: Chronic cough Glaucoma Seizures Asthma HTN Osteoporosis HLD Bipolar disorder Plan: CM for discharge planning GI prophylaxis Home medications as indicated Other orders as listed above Routine AM labs She is a full code. Her PCP is Dr. Myles Thank you for allowing us to participate in the care of this patient!! Requesting Provider: Dr. Shelton Date Consult Requested: 10/27/17 Reason for Consult: Post-operative medical care Patient History Reviewed: Yes Admission H&P Reviewed: Yes Time Spent (in minutes): 40
[2017-10-27] MEDS ORDERED: ePHEDrine/Normal Saline 25 MG/5 ML Syringe ONE (07:26)
[2017-10-27] MEDS ORDERED: Morphine 8 MG, EPINEPHrine 0.3 MG, Cefuroxime 750 MG, Ketorolac 30 MG, Sodium Chloride ... ONE ×5 (07:30)
[2017-10-27] MEDS ORDERED: EPINEPHrine 1 MG/ML SDV ONE (07:33)
[2017-10-27] MEDS ORDERED: Ropivacaine 0.5% 5 MG/ML 30 ML SDV ONE (07:33)
[2017-10-27] MEDS ORDERED: Ketamine 500 mg/10 ML MDV ONE (07:37)
[2017-10-27] MEDS: Vancomycin 1 GM SDV ONE ×2 (08:11→08:13)
[2017-10-27] MEDS ORDERED: Meperidine 50 MG/ML Vial IVPUSH PRN (08:51)
[2017-10-27] MEDS ORDERED: diphenhydrAMINE 50 MG/ML SDV IVPUSH PRN (08:51)
[2017-10-27] MEDS ORDERED: fentaNYL 100 MCG/2 ML SDV IVPUSH PRN (08:51)
--- NOTE | 2017-10-27 08:51 | PCM.POSTAN ---
POST ANESTHESIA ASSESSMENT - MENTAL STATUS Mental Status: Alert, Oriented - VITAL SIGNS Pulse Rate: 85 SaO2: 94 Resp Rate: 15 Blood Pressure: 130/65 Temperature: 36.3 C - RESPIRATORY Respiratory Status: Respiratory Rate WNL, Airway Patent, O2 Saturation Stable, Supplemental Oxygen - CARDIOVASCULAR CV Status: Pulse Rate WNL, Blood Pressure Stable - GASTROINTESTINAL GI Status: No Symptoms - PAIN Pain Score: 0 - POST OP HYDRATION Hydration Status: Adequate & Stable
--- NOTE | 2017-10-27 09:19 | CR ---
Right knee: AP and lateral views of the right knee were obtained. Comparison: No prior right knee exam. Knee prosthesis is noted. Components appear aligned. Soft tissue air and air within the joint is seen from the surgical procedure. Vascular calcification is seen. Underlying bony structures are intact. Impression: 1. Satisfactory postop radiographic appearance of recently placed right knee prosthesis. Diagnostic code #2
--- NOTE | 2017-10-27 09:36 | PCM.SN ---
- Free Text/Narrative Note: Right selective femoral nerve block at the adductor canal for post-procedure pain control Time Out: 906 Start: 906 End: 915 Chart reviewed. Consent signed. Questions answered. Appropriate monitors applied. Time out performed. Right mid-shaft femur evaluated with ultrasound. Scanning medially femur, I was able to identify the femoral artery in the adductor canal. The saphenous nerve was lateral to the artery. The skin was prepped lateral to the ultrasound probe with chlorahexadine. The 21ga 4 insulated block needle was inserted under direct ultrasound guidance into the adductor canal. 20mL of 0.5% ropivacaine with 1:200,000 epinephrine was injected cirmcumferentially about the nerve with intermittent negative aspiration every 5mL. Patient tolerated the procedure well. See pictures on progress note and vital signs on nurses notes. Block completed postoperatively. Benito Serrano CRNA
[2017-10-27] MEDS: Famotidine 20 MG Tab PO SCH ×2 (10:11→17:40)
[2017-10-27] MEDS: Acetaminophen/oxyCODONE 325-5 MG Tab PO PRN ×2 (15:01→19:06)
[2017-10-27] MEDS: Ketorolac 15 MG/ML SDV IVPUSH PRN (15:01)
[2017-10-27] MEDS: ceFAZolin 2 GM in Premix Bag 1 BAG IV SCH ×2 (15:02→23:08)
[2017-10-27] MEDS ORDERED: Non-Formulary Medication 1 Each (Fluticasone/Salmeterol 1 PUFF) INH SCH (21:00)
[2017-10-27] MEDS: Docusate Sodium 100 MG Cap PO SCH (21:15)
[2017-10-27] MEDS: lamoTRIgine 100 MG Tab PO SCH (21:15)
[2017-10-28] MEDS: Acetaminophen/oxyCODONE 325-5 MG Tab PO PRN ×2 (04:33→10:14)
[2017-10-28] MEDS: Famotidine 20 MG Tab PO SCH (06:32)
[2017-10-28] MEDS: ceFAZolin 2 GM in Premix Bag 1 BAG IV SCH (06:32)
--- NOTE | 2017-10-28 06:32 | PCM.CONSN ---
- General Info Date of Service: 10/28/17 Admission Dx/Problem (Free Text): Admission Diagnosis/Problem Admission Diagnosis/Problem Osteoarthritis of knee Subjective Update: In to see Martha. She is sitting up in the chair and doing well. She has been working with therapies. No concerns by patient or nursing. Functional Status: Reports: Pain Controlled, Tolerating Diet, Ambulating, Urinating, Incentive Spirometry. Denies: New Symptoms - Review of Systems General: Reports: No Symptoms. Denies: Fever, Fatigue HEENT: Reports: No Symptoms. Denies: Sore Throat Pulmonary: Reports: No Symptoms. Denies: Shortness of Breath, Cough, Sputum, Wheezing Cardiovascular: Reports: No Symptoms. Denies: Chest Pain, Palpitations, Dyspnea on Exertion, Edema Gastrointestinal: Reports: No Symptoms. Denies: Abdominal Pain, Constipation, Diarrhea, Nausea, Vomiting Genitourinary: Reports: No Symptoms. Denies: Dysuria, Burning, Urgency Musculoskeletal: Reports: Leg Pain Skin: Reports: No Symptoms Neurological: Reports: No Symptoms. Denies: Confusion Psychiatric: Reports: No Symptoms - Patient Data Vitals - Most Recent: Last Vital Signs Temp 98.4 F 10/28/17 04:27 Pulse 84 10/28/17 04:27 Resp 20 10/28/17 04:27 BP 128/77 10/28/17 04:27 Pulse Ox 94 L 10/28/17 04:27 Weight - Most Recent: 153 lb I&O - Last 24 Hours: Intake & Output 10/27/17 10/27/17 10/28/17 14:59 22:59 06:59 Intake Total 100 0 1800 Output Total 110 175 700 Balance -10 -175 1100 Lab Results Last 24 Hours: Laboratory Results - last 24 hr 10/28/17 Range/Units 05:46 WBC 10.29 H (3.98-10.04) K/mm3 RBC 3.64 L (3.98-5.22) M/mm3 Hgb 10.6 L (11.2-15.7) gm/L Hct 34.5 (34.1-44.9) % MCV 94.8 (79.4-94.8) fl MCH 29.1 (25.6-32.2) pg MCHC 30.7 L (32.2-35.5) g/dl RDW Std Deviation 45.6 (36.4-46.3) fL Plt Count 312 (182-369) K/mm3 MPV 10.1 (9.4-12.3) fl Med Orders - Current: Current Medications Bisacodyl (Dulcolax) 5 mg PO DAILY PRN PRN Reason: Constipation Calcium Carbonate (Calcium Carbonate/Vitamin D 600 Mg-200 Unit) 1 tab PO DAILY [facility] Cyclobenzaprine HCl (Flexeril) 10 mg PO TID PRN PRN Reason: Spasms Last Admin: 10/28/17 04:32 Dose: 10 mg Docusate Sodium (Colace) 100 mg PO BID [facility] Last Admin: 10/27/17 21:15 Dose: 100 mg Famotidine (Pepcid) 20 mg PO Q12H [facility] Last Admin: 10/27/17 17:40 Dose: 20 mg Cefazolin Sodium/Dextrose 2 gm (/ Premix) 50 mls @ 100 mls/hr IV Q8H [facility] Stop: 10/28/17 07:59 Last Admin: 10/27/17 23:08 Dose: 100 mls/hr Ketorolac Tromethamine (Toradol) 15 mg IVPUSH Q6H PRN PRN Reason: Pain Last Admin: 10/27/17 15:01 Dose: 15 mg Lamotrigine (Lamotrigine) 100 mg PO BID [facility] Last Admin: 10/27/17 21:15 Dose: 100 mg Magnesium Hydroxide (Milk Of Magnesia) 30 ml PO BID PRN PRN Reason: Constipation Morphine Sulfate (Morphine) 2 mg IVPUSH Q2H PRN PRN Reason: Breakthrough Pain Multivitamins (Thera) 1 each PO DAILY [facility] Naloxone HCl (Narcan) 0.1 mg IVPUSH Q5M PRN PRN Reason: Oversedation Non-Formulary Medication (Fluticasone/Salmeterol) 1 puff INH BID [facility] Ondansetron HCl (Zofran) 4 mg IVPUSH Q6H PRN PRN Reason: Nausea/Vomiting Oxycodone/Acetaminophen (Percocet 325-5 Mg) 1 - 2 tab PO Q4H PRN PRN Reason: Pain Last Admin: 10/28/17 04:33 Dose: 2 tab Bimatoprost 1 Drop 0 each EYEBOTH BEDTIME [facility] Last Admin: 10/27/17 21:28 Dose: Not Given Rivaroxaban (Xarelto) 10 mg PO DAILY [facility] Senna (Senna) 8.6 mg PO BID PRN PRN Reason: Constipation Sodium Chloride (Saline Flush) 10 ml FLUSH ASDIRECTED PRN PRN Reason: Keep Vein Open Discontinued Medications Acetaminophen (Tylenol) 975 mg PO ONETIME [facility] Stop: 10/27/17 14:00 Last Admin: 10/27/17 06:25 Dose: 975 mg Bupivacaine HCl (Marcaine 0.25%) Confirm Administered Dose 30 ml .ROUTE .STK- MED ONE Stop: 10/27/17 06:10 Last Admin: 10/27/17 08:10 Dose: 30 ml Bupivacaine HCl (Sensorcaine-Mpf 0.75%) Confirm Administered Dose 30 ml .ROUTE .STK-MED ONE Stop: 10/27/17 06:32 Cefazolin Sodium (Ancef) Confirm Administered Dose 2 gm .ROUTE .STK-MED ONE Stop: 10/27/17 06:10 Last Admin: 10/27/17 08:08 Dose: 2 gm Cefazolin Sodium (Ancef) Confirm Administered Dose 2 gm .ROUTE .STK-MED ONE Stop: 10/27/17 07:17 Morphine Sulfate 8 mg/Epinephrine HCl 0.3 mg/Cefuroxime Sodium 750 mg/Ketorolac Tromethamine 30 mg/Sodium Chloride 27.9 ml 0 mg .XX ONETIME ONE Stop: 10/27/17 07:31 Last Admin: 10/27/17 08:10 Dose: 788.3 mg Dexamethasone (Dexamethasone) Confirm Administered Dose 4 mg .ROUTE .STK-MED ONE Stop: 10/27/17 06:32 Diphenhydramine HCl (Benadryl) 25 mg IVPUSH Q6H PRN PRN Reason: Pruritis Stop: 10/27/17 16:00 Ephedrine Sulfate (Ephedrine In Ns) Confirm Administered Dose 25 mg .ROUTE .STK- MED ONE Stop: 10/27/17 07:27 Epinephrine HCl (Adrenalin) Confirm Administered Dose 1 mg .ROUTE .STK-MED ONE Stop: 10/27/17 07:34 Fentanyl (Sublimaze) Confirm Administered Dose 100 mcg .ROUTE .STK-MED ONE Stop: 10/27/17 06:27 Fentanyl (Sublimaze) 50 mcg IVPUSH Q5M PRN PRN Reason: Pain Stop: 10/27/17 12:00 Lactated Ringer's (Ringers, Lactated) 1,000 mls @ 125 mls/hr IV ASDIRECTED [facility] Last Admin: 10/27/17 06:25 Dose: 125 mls/hr Lidocaine HCl (Xylocaine-Mpf 1%) Confirm Administered Dose 5 mls @ as directed .ROUTE .STK-MED ONE Stop: 10/27/17 06:32 Iodine (Iodine 2% Mild Tincture) Confirm Administered Dose 30 ml .ROUTE .STK- MED ONE Stop: 10/27/17 06:10 Last Admin: 10/27/17 08:04 Dose: 18 ml Ketamine HCl (Ketalar) Confirm Administered Dose 500 mg .ROUTE .STK-MED ONE Stop: 10/27/17 07:38 Lidocaine/Sodium Bicarbonate (Buffered Lidocaine 1% In Ns 8.4%) 0.25 ml IDERM ONETIME PRN PRN Reason: Prior to IV Start Last Admin: 10/27/17 06:25 Dose: 0.25 ml Meperidine HCl (Meperidine) 12.5 mg IVPUSH ONETIME PRN PRN Reason: Shivering Stop: 10/27/17 12:00 Midazolam HCl (Versed 1 Mg/Ml) Confirm Administered Dose 2 mg .ROUTE .STK-MED ONE Stop: 10/27/17 06:28 Ondansetron HCl (Zofran) Confirm Administered Dose 4 mg .ROUTE .STK-MED ONE Stop: 10/27/17 06:32 Ondansetron HCl (Zofran) 4 mg IVPUSH ONETIME PRN PRN Reason: Nausea/Vomiting Stop: 10/27/17 16:00 Oxycodone HCl (Oxycontin) 10 mg PO ONETIME [facility] Stop: 10/27/17 14:00 Last Admin: 10/27/17 06:25 Dose: 10 mg Pregabalin (Lyrica) 50 mg PO ONETIME [facility] Stop: 10/27/17 14:00 Last Admin: 10/27/17 07:06 Dose: 50 mg Propofol (Diprivan 20 Ml) Confirm Administered Dose 600 mg .ROUTE .STK-MED ONE Stop: 10/27/17 06:27 Ropivacaine (Naropin 0.5%) Confirm Administered Dose 30 ml .ROUTE .STK-MED ONE Stop: 10/27/17 07:34 Tranexamic Acid (Cyklokapron) Confirm Administered Dose 1,000 mg .ROUTE .STK- MED ONE Stop: 10/27/17 06:10 Last Admin: 10/27/17 08:17 Dose: 1,000 mg Vancomycin HCl (Vancomycin) Confirm Administered Dose 1 gm .ROUTE .STK-MED ONE Stop: 10/27/17 06:10 Last Admin: 10/27/17 08:13 Dose: 1 gm - Exam Quality Assessment: DVT Prophylaxis. No: Supplemental Oxygen, Urine Catheter General: Alert, Oriented, Cooperative, No Acute Distress HEENT: Pupils Equal, Pupils Reactive, EOMI, Mucous Membr. Moist/[place] Neck: Supple, Trachea Midline, No JVD Lungs: Clear to Auscultation, Normal Respiratory Effort Cardiovascular: Regular Rate, Regular Rhythm GI/Abdominal Exam: Normal Bowel Sounds, Soft, Non-Tender, No Distention, No Abnormal Bruit (Female) Exam: Deferred Back Exam: Normal Inspection, Full Range of Motion Extremities: No Pedal Edema, Normal Capillary Refill, Leg Pain, Limited Range of Motion, Other (MANUEL bandage in place on right leg, Cooling pack in place. ) Peripheral Pulses: 2+: Radial (L), Radial (R), Dorsalis Pedis (L), Dorsalis Pedis (R) Skin: Warm, Dry, Intact Wound/Incisions: Dressing Dry and Intact, No Drainage Neurological: No New Focal Deficit Psy/Mental Status: Alert, Normal Affect, Normal Mood Consult PN Assessment/Plan POD#: 1 Procedures: Procedures AIRWAY INHALATION TREATMENT (07/24/17) COMPLETE CBC AUTOMATED (07/24/17) COMPREHEN METABOLIC PANEL (07/24/17) GAIT TRAINING THERAPY (07/24/17) MEASURE BLOOD OXYGEN LEVEL (07/24/17) MR-STAPH DNA AMP PROBE (07/24/17) OT EVAL LOW COMPLEX 30 MIN (07/24/17) PT EVAL MOD COMPLEX 30 MIN (07/24/17) ROUTINE VENIPUNCTURE (07/24/17) SELF CARE MNGMENT TRAINING (07/24/17) THERAPEUTIC ACTIVITIES (07/24/17) THERAPEUTIC EXERCISES (07/24/17) TOTAL KNEE ARTHROPLASTY (07/24/17) X-RAY EXAM OF KNEE 1 OR 2 (07/24/17) (1) S/P total knee arthroplasty SNOMED Code(s): 5897216220343, 238389185, 7902669089048 Code(s): Z96.659 - PRESENCE OF UNSPECIFIED ARTIFICIAL KNEE JOINT Priority: High Current Visit: Yes Qualifiers: Laterality: right Qualified Code(s): Z96.651 - Presence of right artificial knee joint (2) Osteoarthritis SNOMED Code(s): 789373129 Code(s): M19.90 - UNSPECIFIED OSTEOARTHRITIS, UNSPECIFIED SITE Priority: High Current Visit: No Qualifiers: Osteoarthritis location: knee Osteoarthritis type: unspecified Laterality : right Qualified Code(s): M17.11 - Unilateral primary osteoarthritis, right knee (3) Asthma SNOMED Code(s): 391956988 Code(s): J45.909 - UNSPECIFIED ASTHMA, UNCOMPLICATED Priority: Low Current Visit: No Qualifiers: Asthma severity: unspecified severity Asthma persistence: unspecified Asthma complication type: unspecified Qualified Code(s): J45.909 - Unspecified asthma, uncomplicated (4) Bipolar disorder SNOMED Code(s): 07612330 Code(s): F31.9 - BIPOLAR DISORDER, UNSPECIFIED Priority: Medium Current Visit: No Qualifiers: Active/Remission status: remission status unspecified Qualified Code(s): F31.9 - Bipolar disorder, unspecified (5) HLD (hyperlipidemia) SNOMED Code(s): 42734431 Code(s): E78.5 - HYPERLIPIDEMIA, UNSPECIFIED Priority: Low Current Visit : No Qualifiers: Hyperlipidemia type: unspecified Qualified Code(s): E78.5 - Hyperlipidemia , unspecified (6) HTN (hypertension) SNOMED Code(s): 39316121 Code(s): I10 - ESSENTIAL (PRIMARY) HYPERTENSION Priority: Medium Current Visit: No Qualifiers: Hypertension type: unspecified Qualified Code(s): I10 - Essential (primary ) hypertension (7) Osteoporosis SNOMED Code(s): 46992818 Code(s): M81.0 - AGE-RELATED OSTEOPOROSIS W/O CURRENT PATHOLOGICAL FRACTURE Priority: High Current Visit: No Qualifiers: Osteoporosis type: unspecified Presence of current pathological fracture: unspecified Qualified Code(s): M81.0 - Age-related osteoporosis without current pathological fracture (8) Seizure disorder SNOMED Code(s): 535082100 Code(s): G40.909 - EPILEPSY, UNSP, NOT INTRACTABLE, WITHOUT STATUS EPILEPTICUS Priority: High Current Visit: No Problem List Initiated/Reviewed/Updated: Yes Plan: I/P: Acute: S/P right total knee arthroplasty - post-operative day 1 -DVT prophylaxis and pain management per primary care team -PT/OT -IS/RT -Monitor oxygen saturation -Titrate oxygen as needed -Vital signs stable -Monitor labs -Pre-operative Hgb was 13.1; Now 10.6 -Pre-operative GFR was 76; Now >60 Osteoarthritis of right knee -Pain management per primary care team Chronic: Chronic cough Glaucoma Seizures Asthma HTN Osteoporosis HLD Bipolar disorder Plan: CM for discharge planning GI prophylaxis Home medications as indicated Other orders as listed above Routine AM labs She is a full code. Her PCP is Dr. Myles Overall from a hospitalist standpoint Martha is doing well. She has been working with therapies. She has urinated and was weaned off oxygen. Labs and vital signs continue to be stable. No concerns from the patient or nursing. She is cleared for discharge pending primary care team and PT/OT agreement. Thank you for allowing us to participate in the care of this patient!!
--- NOTE | 2017-10-28 07:50 | PCM.SURGPN ---
- General Info Date of Service: 10/28/17 POD#: 1 Functional Status: Reports: Pain Controlled, Tolerating Diet, Ambulating, Urinating, Incentive Spirometry, Other (The pt states she is doing very well and feels prepared for discharge to home.) - Patient Data Vitals - Most Recent: Last Vital Signs Temp 98.4 F 10/28/17 04:27 Pulse 84 10/28/17 04:27 Resp 20 10/28/17 04:27 BP 128/77 10/28/17 04:27 Pulse Ox 94 L 10/28/17 04:27 Weight - Most Recent: 153 lb I&O - Last 24 Hours: Intake & Output 10/27/17 10/28/17 10/28/17 22:59 06:59 14:59 Intake Total 0 1800 Output Total 175 700 Balance -175 1100 Lab Results Last 24 Hrs: Laboratory Results - last 24 hr 10/28/17 Range/Units 05:46 WBC 10.29 H (3.98-10.04) K/mm3 RBC 3.64 L (3.98-5.22) M/mm3 Hgb 10.6 L (11.2-15.7) gm/L Hct 34.5 (34.1-44.9) % MCV 94.8 (79.4-94.8) fl MCH 29.1 (25.6-32.2) pg MCHC 30.7 L (32.2-35.5) g/dl RDW Std Deviation 45.6 (36.4-46.3) fL Plt Count 312 (182-369) K/mm3 MPV 10.1 (9.4-12.3) fl Med Orders - Current: Current Medications Bisacodyl (Dulcolax) 5 mg PO DAILY PRN PRN Reason: Constipation Calcium Carbonate (Calcium Carbonate/Vitamin D 600 Mg-200 Unit) 1 tab PO DAILY VANITA Cyclobenzaprine HCl (Flexeril) 10 mg PO TID PRN PRN Reason: Spasms Last Admin: 10/28/17 04:32 Dose: 10 mg Docusate Sodium (Colace) 100 mg PO BID VANITA Last Admin: 10/27/17 21:15 Dose: 100 mg Famotidine (Pepcid) 20 mg PO Q12H VANITA Last Admin: 10/28/17 06:32 Dose: 20 mg Cefazolin Sodium/Dextrose 2 gm (/ Premix) 50 mls @ 100 mls/hr IV Q8H [facility] Stop: 10/28/17 07:59 Last Admin: 10/28/17 06:32 Dose: 100 mls/hr Ketorolac Tromethamine (Toradol) 15 mg IVPUSH Q6H PRN PRN Reason: Pain Last Admin: 10/27/17 15:01 Dose: 15 mg Lamotrigine (Lamotrigine) 100 mg PO BID [facility] Last Admin: 10/27/17 21:15 Dose: 100 mg Magnesium Hydroxide (Milk Of Magnesia) 30 ml PO BID PRN PRN Reason: Constipation Morphine Sulfate (Morphine) 2 mg IVPUSH Q2H PRN PRN Reason: Breakthrough Pain Multivitamins (Thera) 1 each PO DAILY [facility] Naloxone HCl (Narcan) 0.1 mg IVPUSH Q5M PRN PRN Reason: Oversedation Non-Formulary Medication (Fluticasone/Salmeterol) 1 puff INH BID [facility] Ondansetron HCl (Zofran) 4 mg IVPUSH Q6H PRN PRN Reason: Nausea/Vomiting Oxycodone/Acetaminophen (Percocet 325-5 Mg) 1 - 2 tab PO Q4H PRN PRN Reason: Pain Last Admin: 10/28/17 04:33 Dose: 2 tab Bimatoprost 1 Drop 0 each EYEBOTH BEDTIME [facility] Last Admin: 10/27/17 21:28 Dose: Not Given Rivaroxaban (Xarelto) 10 mg PO DAILY [facility] Senna (Senna) 8.6 mg PO BID PRN PRN Reason: Constipation Sodium Chloride (Saline Flush) 10 ml FLUSH ASDIRECTED PRN PRN Reason: Keep Vein Open Discontinued Medications Acetaminophen (Tylenol) 975 mg PO ONETIME [facility] Stop: 10/27/17 14:00 Last Admin: 10/27/17 06:25 Dose: 975 mg Bupivacaine HCl (Marcaine 0.25%) Confirm Administered Dose 30 ml .ROUTE .STK- MED ONE Stop: 10/27/17 06:10 Last Admin: 10/27/17 08:10 Dose: 30 ml Bupivacaine HCl (Sensorcaine-Mpf 0.75%) Confirm Administered Dose 30 ml .ROUTE .STK-MED ONE Stop: 10/27/17 06:32 Cefazolin Sodium (Ancef) Confirm Administered Dose 2 gm .ROUTE .STK-MED ONE Stop: 10/27/17 06:10 Last Admin: 10/27/17 08:08 Dose: 2 gm Cefazolin Sodium (Ancef) Confirm Administered Dose 2 gm .ROUTE .STK-MED ONE Stop: 10/27/17 07:17 Morphine Sulfate 8 mg/Epinephrine HCl 0.3 mg/Cefuroxime Sodium 750 mg/Ketorolac Tromethamine 30 mg/Sodium Chloride 27.9 ml 0 mg .XX ONETIME ONE Stop: 10/27/17 07:31 Last Admin: 10/27/17 08:10 Dose: 788.3 mg Dexamethasone (Dexamethasone) Confirm Administered Dose 4 mg .ROUTE .STK-MED ONE Stop: 10/27/17 06:32 Diphenhydramine HCl (Benadryl) 25 mg IVPUSH Q6H PRN PRN Reason: Pruritis Stop: 10/27/17 16:00 Ephedrine Sulfate (Ephedrine In Ns) Confirm Administered Dose 25 mg .ROUTE .STK- MED ONE Stop: 10/27/17 07:27 Epinephrine HCl (Adrenalin) Confirm Administered Dose 1 mg .ROUTE .STK-MED ONE Stop: 10/27/17 07:34 Fentanyl (Sublimaze) Confirm Administered Dose 100 mcg .ROUTE .STK-MED ONE Stop: 10/27/17 06:27 Fentanyl (Sublimaze) 50 mcg IVPUSH Q5M PRN PRN Reason: Pain Stop: 10/27/17 12:00 Lactated Ringer's (Ringers, Lactated) 1,000 mls @ 125 mls/hr IV ASDIRECTED VANITA Last Admin: 10/27/17 06:25 Dose: 125 mls/hr Lidocaine HCl (Xylocaine-Mpf 1%) Confirm Administered Dose 5 mls @ as directed .ROUTE .STK-MED ONE Stop: 10/27/17 06:32 Iodine (Iodine 2% Mild Tincture) Confirm Administered Dose 30 ml .ROUTE .STK- MED ONE Stop: 10/27/17 06:10 Last Admin: 10/27/17 08:04 Dose: 18 ml Ketamine HCl (Ketalar) Confirm Administered Dose 500 mg .ROUTE .STK-MED ONE Stop: 10/27/17 07:38 Lidocaine/Sodium Bicarbonate (Buffered Lidocaine 1% In Ns 8.4%) 0.25 ml IDERM ONETIME PRN PRN Reason: Prior to IV Start Last Admin: 10/27/17 06:25 Dose: 0.25 ml Meperidine HCl (Meperidine) 12.5 mg IVPUSH ONETIME PRN PRN Reason: Shivering Stop: 10/27/17 12:00 Midazolam HCl (Versed 1 Mg/Ml) Confirm Administered Dose 2 mg .ROUTE .STK-MED ONE Stop: 10/27/17 06:28 Ondansetron HCl (Zofran) Confirm Administered Dose 4 mg .ROUTE .STK-MED ONE Stop: 10/27/17 06:32 Ondansetron HCl (Zofran) 4 mg IVPUSH ONETIME PRN PRN Reason: Nausea/Vomiting Stop: 10/27/17 16:00 Oxycodone HCl (Oxycontin) 10 mg PO ONETIME VANITA Stop: 10/27/17 14:00 Last Admin: 10/27/17 06:25 Dose: 10 mg Pregabalin (Lyrica) 50 mg PO ONETIME VANITA Stop: 10/27/17 14:00 Last Admin: 10/27/17 07:06 Dose: 50 mg Propofol (Diprivan 20 Ml) Confirm Administered Dose 600 mg .ROUTE .STK-MED ONE Stop: 10/27/17 06:27 Ropivacaine (Naropin 0.5%) Confirm Administered Dose 30 ml .ROUTE .STK-MED ONE Stop: 10/27/17 07:34 Tranexamic Acid (Cyklokapron) Confirm Administered Dose 1,000 mg .ROUTE .STK- MED ONE Stop: 10/27/17 06:10 Last Admin: 10/27/17 08:17 Dose: 1,000 mg Vancomycin HCl (Vancomycin) Confirm Administered Dose 1 gm .ROUTE .STK-MED ONE Stop: 10/27/17 06:10 Last Admin: 10/27/17 08:13 Dose: 1 gm - Exam Wound/Incisions: Dressing Dry and Intact General: Alert, Cooperative, No Acute Distress Lungs: Normal Respiratory Effort Extremities: Other (NVS intact for RLE. Heidi's negative.) - Problem List Review Problem List Initiated/Reviewed/Updated: Yes - My Orders Last 24 Hours: Active Orders 24 hr Category Date Time Status Cooling Warming Measures [RC] ASDIRECTED Care 10/27/17 08:51 Inactive Notify Provider [RC] ASDIRECTED Care 10/27/17 08:51 Active Pulse Oximetry [RC] ASDIRECTED Care 10/27/17 08:51 Active Ready for Discharge [RC] PER UNIT ROUTINE Care 10/28/17 07:48 Ordered Regular Diet [DIET] Diet 10/27/17 Lunch Active COMPREHENSIVE METABOLIC PN,CMP [CHEM] AM Lab 10/28/17 05:46 Received Calcium Carbonate/Vitamin D3 [Calcium Carbonate/Vitamin Med 10/28/17 09:00 Active D 600 MG-200 Unit] 1 tab PO DAILY Docusate Sodium [Colace] Med 10/27/17 21:00 Active 100 mg PO BID Fluticasone/Salmeterol Med 10/27/17 21:00 Pending 1 puff INH BID Multivitamins,Therapeutic [Thera] Med 10/28/17 09:00 Active 1 each PO DAILY Patient's Own Medication [Ptom] Med 10/27/17 21:00 Active 0 each EYEBOTH BEDTIME Rivaroxaban [Xarelto] Med 10/28/17 09:00 Pending 10 mg PO DAILY ceFAZolin [Ancef] 2 gm Med 10/27/17 15:30 Active Premix Bag 1 bag IV Q8H lamoTRIgine Med 10/27/17 21:00 Active 100 mg PO BID Medication Orders Bisacodyl (Dulcolax) 5 mg PO DAILY PRN PRN Reason: Constipation Calcium Carbonate (Calcium Carbonate/Vitamin D 600 Mg-200 Unit) 1 tab PO DAILY [facility] Cyclobenzaprine HCl (Flexeril) 10 mg PO TID PRN PRN Reason: Spasms Last Admin: 10/28/17 04:32 Dose: 10 mg Docusate Sodium (Colace) 100 mg PO BID [facility] Last Admin: 10/27/17 21:15 Dose: 100 mg Famotidine (Pepcid) 20 mg PO Q12H [facility] Last Admin: 10/28/17 06:32 Dose: 20 mg Admin: 10/27/17 17:40 Dose: 20 mg Admin: 10/27/17 10:11 Dose: Not Given Cefazolin Sodium/Dextrose 2 gm (/ Premix) 50 mls @ 100 mls/hr IV Q8H [facility] Stop: 10/28/17 07:59 Last Admin: 10/28/17 06:32 Dose: 100 mls/hr Infusion: 10/27/17 23:38 Dose: 100 mls/hr Admin: 10/27/17 23:08 Dose: 100 mls/hr Infusion: 10/27/17 15:32 Dose: 100 mls/hr Admin: 10/27/17 15:02 Dose: 100 mls/hr Ketorolac Tromethamine (Toradol) 15 mg IVPUSH Q6H PRN PRN Reason: Pain Last Admin: 10/27/17 15:01 Dose: 15 mg Lamotrigine (Lamotrigine) 100 mg PO BID [facility] Last Admin: 10/27/17 21:15 Dose: 100 mg Magnesium Hydroxide (Milk Of Magnesia) 30 ml PO BID PRN PRN Reason: Constipation Morphine Sulfate (Morphine) 2 mg IVPUSH Q2H PRN PRN Reason: Breakthrough Pain Multivitamins (Thera) 1 each PO DAILY [facility] Naloxone HCl (Narcan) 0.1 mg IVPUSH Q5M PRN PRN Reason: Oversedation Non-Formulary Medication (Fluticasone/Salmeterol) 1 puff INH BID [facility] Ondansetron HCl (Zofran) 4 mg IVPUSH Q6H PRN PRN Reason: Nausea/Vomiting Oxycodone/Acetaminophen (Percocet 325-5 Mg) 1 - 2 tab PO Q4H PRN PRN Reason: Pain Last Admin: 10/28/17 04:33 Dose: 2 tab Admin: 10/27/17 19:06 Dose: 2 tab Admin: 10/27/17 15:01 Dose: 2 tab Bimatoprost 1 Drop 0 each EYEBOTH BEDTIME [facility] Last Admin: 10/27/17 21:28 Dose: Not Given Rivaroxaban (Xarelto) 10 mg PO DAILY [facility] Senna (Senna) 8.6 mg PO BID PRN PRN Reason: Constipation Sodium Chloride (Saline Flush) 10 ml FLUSH ASDIRECTED PRN PRN Reason: Keep Vein Open - Assessment Assessment (Free Text/Narrative):: POD#1 - right TKA - Plan Plan (Free Text/Narrative):: 1. Hgb 10.6. 2. Xarelto 10mg PO daily, TEDs, frequent mobility. 3. Discharge to home today. 4. Outpatient P.T. The pt's case was discussed with Dr. Shelton.
[2017-10-28] MEDS: lamoTRIgine 100 MG Tab PO SCH (08:23)
[2017-10-28] MEDS: Docusate Sodium 100 MG Cap PO SCH (08:23)
--- NOTE | 2017-10-28 08:30 | PCM48HPAN ---
Post Anesthesia Note - EVALUATION WITHIN 48HRS OF ANESTHETIC Vital Signs in Normal Range: Yes Patient Participated in Evaluation: Yes Respiratory Function Stable: Yes Airway Patent: Yes Cardiovascular Function Stable: Yes Hydration Status Stable: Yes Pain Control Satisfactory: Yes Nausea and Vomiting Control Satisfactory: Yes Mental Status Recovered: Yes - COMMENTS/OBSERVATIONS Free Text/Narrative:: patient denied any anesthesia complications. Doing well resting in bed.
[2017-10-28] MEDS ORDERED: Calcium Carbonate/Vitamin D3 600 MG-200 Units Tab PO SCH (09:00)
[2017-10-28] MEDS ORDERED: Rivaroxaban 10 MG Tab PO SCH (09:00)
[2017-10-28] MEDS ORDERED: Multivitamins,Therapeutic Tab PO SCH (09:00)
[2017-10-28] MEDS: Ketorolac 15 MG/ML SDV IVPUSH PRN (10:15)
--- NOTE | 2017-11-03 21:44 | PCM.OPNOTE ---
- General Post-Op/Procedure Note Date of Surgery/Procedure: 10/27/17 Operative Procedure(s): right total knee arthroplasty Pre Op Diagnosis: right knee osteoarhtrosis Post-Op Diagnosis: Same Anesthesia Technique: Local, MAC, Spinal Primary Surgeon: Russell Shelton Anesthesia Provider: Omar Peters Aviation Tactical Readiness Officer: Maria Guadalupe Lakhani Aviation Tactical Readiness Officer: Char Cuellar in mLs: 5 Complications: None Condition: Good Free Text/Narrative:: size 5 femur size 4 tibia 11mm 32x10
--- NOTE | 2017-11-03 23:23 | OR ---
DATE OF OPERATION: 10/27/2017 SURGEON: Russell Shelton MD OPERATION PERFORMED: Right total knee arthroplasty. PREOPERATIVE DIAGNOSIS: Right knee osteoarthrosis. POSTOPERATIVE DIAGNOSIS: Right knee osteoarthrosis. ANESTHESIA TECHNIQUE: Local MAC with spinal. ANESTHESIA PROVIDER: Omar Peters. ASSISTANTS: 1. Maria Guadalupe Lakhani PA-C. 2. Char Cuellar LPN. ESTIMATED BLOOD LOSS: 5 mL. COMPLICATIONS: None. CONDITION: Stable. IMPLANTS: 1. Isaura size 5 cemented PS femur. 2. Isaura size 4 cemented tibial base plate. 3. Isaura size 4, 11 mm PS X3 polyethylene. 4. [place] size 32 x 10 mm cemented polyethylene patella. DESCRIPTION OF PROCEDURE: The patient was identified in the preop holding area. Proper site was marked and identified by the surgeon. The patient was taken back to the operating theater. After adequate anesthesia, the patient's right lower extremity had a nonsterile tourniquet applied and it was then sterilely prepped and draped in the usual sterile fashion. OR timeout was performed. The patient received 2 g IV Ancef. At this time, right lower extremity was exsanguinated. Tourniquet was insufflated to 300 mmHg. Standard medial parapatellar incision was made. Medial parapatellar arthrotomy was created. Deep fibers of the MCL were raised and anterior fat pad was resected. At this time, attention was turned to the patella. Patella measured 23, it was resected to a 13 for 32 x 10 mm patella. Drill holes were then drilled and found to be in adequate position. The drill was then drilled in the distal femur and the intramedullary distal femoral cutting guide was then placed. 8 mm was resected off the distal femur and was found to be an adequate resection. Sizing guide was placed. It was found to be a size 5 femur that was shown on the implant record at the beginning of this dictation. The drill holes were drilled for the epicondylar axis using [place] line and epicondyles as reference. At this time, the 4-in-1 cutting block was placed. An anterior posterior and anterior and posterior chamfer cuts were then completed. The correct size box cut was then placed and the box cut was completed and found to be an adequate resection. Attention was turned to the tibia. The posterior medial lateral retractors were placed. The extramedullary tibial guide was placed. It was placed in the old footprint of the ACL. It was aligned with the center of the ankle and 0 degrees of slope, 9 mm was then resected off the unaffected lateral side. There was found to be an acceptable reduction. At this time, posterior osteophytes were removed along with medial and lateral meniscus. A trial implant was placed with a correct sized tibia that was mentioned at the beginning of the dictation. A Isaura size 4, 11 mm PS X3 polyethylene was then placed. The patient's knee was brought through range of motion. The patella was tracking centrally and was stable to varus and valgus stress. Alignment was found to be roughly at 0 degrees. At this time, cement was mixed on the back table. The tibia was stamped and drilled in proper rotation. All cut surfaces were irrigated with pulse lavage irrigation with Ancef and then completely dried. Once this was completed, then the cement was ready. The universal tibial base plate was cemented in place. Next, the Isaura size 5 cemented PS femur was cemented into place and the [place] size 32 x 10 mm cemented polyethylene was then placed. The patient's knee was brought into full extension. Excess cement was removed. The patella was then cemented in place at this time. Tourniquet was deflated. One liter dilute Betadine solution was irrigated through the knee along with 3 L of pulse lavage irrigation with Ancef. Periarticular injection was then completed. The patient's knee was brought through a range of motion. Once the cement had time to set up and it was found to be stable to varus valgus stress, the patella was tracking centrally with full range of motion. At this time, a #2 barbed suture was used for closure of the medial parapatellar arthrotomy. Topical tranexamic acid was placed. 2-0 Vicryl was used subcutaneously, a running 3-0 Monocryl was used subcuticularly. The patient tolerated the procedure well and was sent to the PACU in stable condition. ANESTHESIA: MMMIRIAM /[id number]
== END 2017-10-28 10:52 | disposition home or self-care (01) ==
LOC: JD.SDS 05:59 → JD.MS 06:03 → JD.SDS 10-28 10:52
PROVIDERS: ATTEND Orthopaedic Surgery
DX: M17.11 Unilateral primary osteoarthritis, right knee (principal); E78.1 Pure hyperglyceridemia; E78.00 Pure hypercholesterolemia, unspecified; J45.909 Unspecified asthma, uncomplicated; F31.9 Bipolar disorder, unspecified; Z79.899 Other long term (current) drug therapy; Z96.652 Presence of left artificial knee joint; Z87.891 Personal history of nicotine dependence
CPT/HCPCS: 27447; 36415; 73560; 80053; 85027; 87641; 94760; 97110; 97116; 97161; 97165; 97535; A9270; C1713; C1776; J0171; J0690; J0697; J1100; J1885; J2250; J2270; J2405; J2704; J2795; J3010; J3370; J3490; J7050; J7120; 01402; 64450